=== PATIENT | male | born 1960 | race Hispanic/Latino ===

== ENCOUNTER 2016-08-29 07:24 | Inpatient (IN) | payer MEDICARE, OTHER ==
--- NOTE | 2016-08-29 09:04 | ED PDOC ---
Arrival/HPI - General Historian: Patient - History of Present Illness Time/Duration: > week Symptom Onset: Gradual Symptom Course: Unchanged Quality: Aching, Burning Severity Level: 2 Activities at Onset: Rest Context: Home - General Chief Complaint: Wound Check Time Seen by Provider: 08/29/16 08:46 - History of Present Illness Narrative History of Present Illness (Text): 08/29/16 09:00 This is a 56Y M with PMH of alcoholism and DM who came to ED for L 2nd toe infection. He saw Dr. Sharma earlier this week who advised him to come to ED. Patient reports he has had this wound for weeks. He also reports he has not been checking his sugar or taking his insulin. He also drinks 4L of pepsi per day. He reports 20lb weight loss in the past few weeks. He also complains of a penile wart who he saw a varnish melter for 2 weeks ago who took a biopsy. He denies dysuria, hematuria or increased frequency. He denies drainage from the ulcer or sexual activity. 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 He denies CP, SOB, fever, chills, n/v/d. Patient also reports he quit drinking years ago. 08/29/16 09:04 (Eileen Zaldivar) Past Medical History - Provider Review Nursing Documentation Reviewed: Yes - Infectious Disease Hx of Infectious Diseases: None - Tetanus Immunization Tetanus Immunization: Unknown, Up to Date - Cardiac Hx Pacemaker: No - Pulmonary Hx Chronic Obstructive Pulmonary Disease (COPD): Yes - Neurological Hx Paralysis: No - Hematological/Oncological Hx Blood Transfusions: No - Musculoskeletal/Rheumatological Hx Musculoskeletal Disorders: Yes Hx Arthritis: Yes - Gastrointestinal Hx Gastrointestinal Disorders: Yes Hx Gastroesophageal Reflux: Yes - Psychiatric Hx Emotional Abuse: No Hx Physical Abuse: No Hx Substance Use: Yes (HX COCAINE(CRACK) USE 10 YRS AGO) - Surgical History Hx Orthopedic Surgery: Yes (bilat legs) - Anesthesia Hx Anesthesia: Yes Hx Anesthesia Reactions: Yes (HARD TO WAKE UP "X 1 INCIDENT") Hx Malignant Hyperthermia: No - Suicidal Assessment Feels Threatened In Home Enviroment: No Family/Social History - Physician Review Nursing Documentation Reviewed: Yes Family/Social History: Diabetes Smoking Status: Heavy Smoker > 10 Cigarettes Daily Hx Alcohol Use: Yes (PAST ETOH"LAST DRINK 2 BEERS 09/20) Hx Substance Use: Yes (HX COCAINE(CRACK) USE 10 YRS AGO) Hx Substance Use Treatment: No Allergies/Home Meds Allergies/Adverse Reactions: Allergies No Known Allergies Allergy (Verified 08/29/16 08:49) Home Medications: Home Meds Medication Instructions Recorded Confirmed Insulin Lispro Mix 75/25 [humalog 15 - 20 units SC TID PRN 05/21/14 08/29/16 Mix 75/25 75 U/Ml-25 U/Ml 10 Ml] Esomeprazole Magnesium [Nexium] 40 mg PO DAILY 04/16/16 08/29/16 Aspirin [Ecotrin] 81 mg PO DAILY 08/29/16 08/29/16 Atorvastatin [Lipitor] 40 mg PO DAILY 08/29/16 08/29/16 Gabapentin [Neurontin] 300 mg PO TID 08/29/16 08/29/16 Linaclotide [Linzess] 290 mcg PO DAILY 08/29/16 08/29/16 Midodrine [Proamatine] 2.5 mg PO TID 08/29/16 08/29/16 Vit D3-Vit K/Berberine/Hops 1 each PO DAILY 08/29/16 08/29/16 [Ostera Tablet] tiZANidine [Zanaflex] 4 mg PO HS 08/29/16 08/29/16 Review of Systems - Physician Review All systems were reviewed & negative as marked: Yes - Review of Systems Constitutional: Weight Change Eyes: Normal. absent: Vision Changes ENT: Normal. absent: Hearing Changes Respiratory: Normal. absent: SOB, Cough Cardiovascular: Normal. absent: Chest Pain, Palpitations Gastrointestinal: Normal. absent: Abdominal Pain, Diarrhea, Nausea, Vomiting Genitourinary Male: Normal. absent: Dysuria, Frequency, Hematuria Musculoskeletal: Normal. absent: Arthralgias, Back Pain, Neck Pain Skin: Skin Lesions (wart on penis and wound on L toe ). absent: Normal Neurological: Normal. absent: Headache, Dizziness Endocrine: Normal. absent: Polyuria, Polydipsia Hemo/Lymphatic: Normal Psychiatric: Normal. absent: Anxiety, Depression Physical Exam Vital Signs Reviewed: Yes Temperature: Afebrile Blood Pressure: Normal Pulse: Tachycardic Respiratory Rate: Normal Appearance: Positive for: Well-Appearing, Non-Toxic, Comfortable Pain Distress: None Mental Status: Positive for: Alert and Oriented X 3 - Systems Exam Head: Present: Atraumatic, Normocephalic Pupils: Present: PERRL Extroacular Muscles: Present: EOMI Conjunctiva: Present: Normal Mouth: Present: Moist Mucous Membranes Neck: Present: Normal Range of Motion Respiratory/Chest: Present: Clear to Auscultation, Good Air Exchange. No: Respiratory Distress, Accessory Muscle Use Cardiovascular: Present: Regular Rate and Rhythm, Normal S1, S2. No: Murmurs Abdomen: Present: Normal Bowel Sounds. No: Tenderness, Distention, Peritoneal Signs Genitourinary Male: Present: Lesions (1cm wart on L base of penis). No: Normal External Genitalia Back: Present: Normal Inspection Upper Extremity: Present: Normal Inspection. No: Cyanosis, Edema Lower Extremity: Present: Edema (trace), Deformity (L 2nd toe has ulceration ) Neurological: Present: GCS=15, CN II-XII Intact, Speech Normal Skin: Present: Warm, Dry, Normal Color. No: Rashes Psychiatric: Present: Alert, Oriented x 3, Normal Insight, Normal Concentration Vital Signs Temp Pulse Resp BP Pulse Ox 08/29/16 07:25 97.9 F 94 H 15 100/63 96 Medical Decision Making Re-evaluation Time: 09:30 Reassessment Condition: Unchanged - Lab Interpretations I have reviewed the lab results: Yes Interpretation: Abnormal lab values (hyperglycemia) - EKG Interpretation Interpreted by ED Physician: Yes Type: 12 lead EKG ED Course and Treatment: Patient Seen With Resident: In agreement with resident note. Patient was seen and evaluated with resident, came up with plan and treatment together. (Shayne Lucio DO) 08/29/16 09:06 Impression: This is a 56Y M with PMH DM and alcoholism here for L 2nd toe wound. He has not been checking his sugar or taking his insulin and has been drinking 4L of pepsi per day. He is also noted to have a wart on base of his penis. DDX: osteomyelitis, diabetic wound, DKA Plan: -- CBC, CMP, U/A, Wound culture -- EKG --Reassess Prior Visits: Notes and results from previous visits were reviewed. 08/29/16 10:42 Progress Note: Patient's sugar noted to be 404. 4U of Regular insulin ordered. Spoke with Dr. Fox who will accept the patient into his service. Spoke with patient who is aware of the plan and agreed to be admitted. (Eileen Zaldivar) - Lab Interpretations Lab Results: 08/29/16 09:15 08/29/16 09:15 Lab Results 08/29/16 09:15: Alcohol, Quantitative < 10 08/29/16 09:15: Sodium 133, Potassium 3.8, Chloride 93 L, Carbon Dioxide 33, Anion Gap 11, BUN 6 L, Creatinine 0.7, Est GFR ( Amer) > 60, Est GFR (Non -Af Amer) > 60, Random Glucose 404 H* D, Calcium 8.8, Total Bilirubin 1.0, AST 66 H, ALT 52, Alkaline Phosphatase 128, Total Protein 7.4, Albumin 3.9, Globulin 3.4, Albumin/Globulin Ratio 1.1 08/29/16 09:15: WBC 6.2 D, RBC 4.50, Hgb 13.5 L, Hct 39.0 L, MCV 86.7, MCH 30.0 , MCHC 34.6, RDW 13.3, Plt Count 112 L, MPV 11.0 08/29/16 09:13: POC Glucose (mg/dL) 381 H - EKG Interpretation EKG Interpretation (Text): 08/29/16 09:23 HR 72. Intervals within normal limits. NSR. (Eileen Zaldivar) - Medication Orders Current Medication Orders: Sodium Chloride (Sodium Chloride 0.9%) 1,000 mls @ 125 mls/hr IV .Q8H STA Stop: 08/29/16 17:47 Last Admin: 08/29/16 09:58 Dose: 125 mls/hr Vancomycin HCl (Vancomycin 1gm) 1 gm in 250 mls @ 167 mls/hr IVPB STAT STA PRN Reason: Protocol Stop: 08/29/16 12:23 Last Admin: 08/29/16 10:59 Dose: 167 mls/hr Discontinued Medications Insulin Human Regular (Humulin R) 4 units IVP STAT STA Stop: 08/29/16 09:49 Last Admin: 08/29/16 10:02 Dose: 4 units Disposition/Present on Arrival - Present on Arrival Any Indicators Present on Arrival: No History of DVT/PE: No History of Uncontrolled Diabetes: No Urinary Catheter: No History of Decub. Ulcer: Yes History Surgical Site Infection Following: None - Disposition Have Diagnosis and Disposition been Completed?: Yes Disposition Time: 10:20 Patient Plan: Admission - Disposition Diagnosis: Diabetes, Diabetic ulcer of toe Disposition: HOSPITALIZED Patient Problems: Current Active Problems Problem Status Onset Diabetes Acute Diabetic ulcer of toe Acute Condition: FAIR Print Language: MACEDONIAN Referrals: Sabino Fox MD [Primary Care Provider] - Follow up with primary
[2016-08-29 09:38] LABS: MEAN CELL VOLUME 86.7 fL (80.0-105.0); MEAN CORPUSCULAR HGB CONC 34.6 g/dl (31.0-37.0); RED CELL DISTRIBUTION WIDTH 13.3 % (11.5-14.5); WHITE BLOOD COUNT 6.2 10^3/ul (4.5-11.0)
[2016-08-29 09:44] LABS: ALB/GLOB RATIO 1.1 (1.1-1.8); ALKALINE PHOSPHATASE 128 U/L (38-133); ALT/SGPT 52 U/L (7-56); AST/SGOT 66 U/L (15-59); BLOOD UREA NITROGEN 6 mg/dL (7-21); CALCIUM 8.8 mg/dL (8.4-10.5); CARBON DIOXIDE 33 mmol/L (21-33); CHLORIDE 93 mmol/L (95-110); GFR AFRICAN-AMERICAN > 60; POTASSIUM 3.8 mmol/L (3.6-5.0); SODIUM 133 mmol/L (132-148); TOTAL PROTEIN 7.4 g/dL (5.8-8.3)
[2016-08-29 09:46] LABS: GLUCOSE,RANDOM 404 mg/dL (70-110)
[2016-08-29] MEDS ORDERED: Insulin Regular 1 UNITS/0.01 ML ML IVP STA (09:48)
[2016-08-29] MEDS ORDERED: Sodium Chloride 0.9% 1,000 ML IV STA (09:48)
[2016-08-29] MEDS ORDERED: Vancomycin 1gm in NS 250ml 1 GM/250 ML BAG IVPB STA (10:54)
[2016-08-29 11:23] LABS: URINE BILIRUBIN NEGATIVE (NEGATIVE); URINE BLOOD NEGATIVE (NEGATIVE); URINE GLUCOSE (UA) >=1000 mg/dL (NEGATIVE); URINE KETONE NEGATIVE (NEGATIVE); URINE LEUKOCYTE ESTERASE NEGATIVE Leu/uL (NEGATIVE); URINE PROTEIN NEGATIVE mg/dL (<30 mg/dL); URINE UROBILINOGEN 0.2 E.U./dL (<1 E.U./dL)
[2016-08-29 11:26] LABS: URINE APPEARANCE CLEAR (CLEAR); URINE COLOR YELLOW (YELLOW)
[2016-08-29] MEDS ORDERED: Non Formulary Medication (Linaclotide [Linzess] 290 MCG) PO SCH (12:15)
[2016-08-29 12:23] VITALS: PULSE 77
[2016-08-29 12:47] LABS: CHOLESTEROL 186 mg/dL (130-200)
[2016-08-29] MEDS: oxyCODONE 80 mg ER Tab (oxyCONTIN) PO SCH (13:26)
[2016-08-29] MEDS: Meropenem 1g/NS 100mL IVPB 1 GM/100 ML PIGGYBACK IVPB SCH (13:26)
[2016-08-29 13:35] LABS: INR 1.08 (0.93-1.08)
--- NOTE | 2016-08-29 13:50 | CP.PCM.CON ---
<KimberleeMackArgelia - Last Filed: 08/29/16 13:44> History of Present Illness - History of Present Illness History of Present Illness: PODIATRY CONSULT NOTE: Mr. Reddy is a 56 yo male patient w/ pmhx significant for DM and alcoholism who was seen at bedside today with Dr. Sharma regarding left toe ulceration. Pt says that he was seen by Dr. Sharma earlier in the week and advised to come in to the ED to be seen. Pt seen resting in bed at time of visit, appears to be in NAD. Family member is present at the bedside. Pt says that he has had this wound for several weeks. Says that he has not been taking his blood sugars daily and has not been compliant with his medications. Denies and pain or discomfort to the left foot at this time. Denies f/n/v/c/sob/cp. Review of Systems - Review of Systems Review of Systems: All systems reviewed and found to be negative except pertinent HPI findings above Past Patient History - Infectious Disease Hx of Infectious Diseases: None - Tetanus Immunizations Tetanus Immunization: Unknown, Up to Date - Past Social History Smoking Status: Heavy Smoker > 10 Cigarettes Daily - CARDIAC Hx Pacemaker: No - PULMONARY Hx Chronic Obstructive Pulmonary Disease (COPD): Yes - NEUROLOGICAL Hx Paralysis: No - HEMATOLOGICAL/ONCOLOGICAL Hx Blood Transfusions: No - MUSCULOSKELETAL/RHEUMATOLOGICAL Hx Musculoskeletal Disorders: Yes Hx Arthritis: Yes - GASTROINTESTINAL Hx Gastrointestinal Disorders: Yes Hx Gastroesophageal Reflux: Yes - PSYCHIATRIC Hx Emotional Abuse: No Hx Physical Abuse: No Hx Substance Use: Yes (HX COCAINE(CRACK) USE 10 YRS AGO) - SURGICAL HISTORY Hx Orthopedic Surgery: Yes (bilat legs) - ANESTHESIA Hx Anesthesia: Yes Hx Anesthesia Reactions: Yes (HARD TO WAKE UP "X 1 INCIDENT") Hx Malignant Hyperthermia: No Meds Allergies/Adverse Reactions: Allergies Allergy/AdvReac Type Severity Reaction Status Date / Time No Known Allergies Allergy Verified 08/29/16 08:49 - Medications Medications: Current Medications Aspirin (Ecotrin) 81 mg PO DAILY [facility] Last Admin: 08/29/16 13:26 Dose: 81 mg Atorvastatin Calcium (Lipitor) 40 mg PO DAILY [facility] Last Admin: 08/29/16 13:27 Dose: 40 mg Gabapentin (Neurontin) 300 mg PO TID [facility] PRN Reason: Protocol Last Admin: 08/29/16 13:27 Dose: 300 mg Sodium Chloride (Sodium Chloride 0.9%) 1,000 mls @ 125 mls/hr IV .Q8H STA Stop: 08/29/16 17:47 Last Admin: 08/29/16 09:58 Dose: 125 mls/hr Sodium Chloride (Sodium Chloride 0.9%) 1,000 mls @ 100 mls/hr IV .Q10H [facility] Stop: 09/02/16 16:29 Meropenem 1g/NS 100mL IVPB (Meropenem 1g/Ns 100ml Ivpb) 1 gm in 100 mls @ 100 mls/hr IVPB Q12 [facility] PRN Reason: Protocol Stop: 09/03/16 10:59 Last Admin: 08/29/16 13:26 Dose: 100 mls/hr Insulin Human Lispro (Humalog Med) 0 units SC ACHS [facility] PRN Reason: Protocol Insulin Lispro Protam/Lispro Human (Humalog Mix 75/25) 15 units SC ACB [facility] Insulin Lispro Protam/Lispro Human (Humalog Mix 75/25) 15 units SC DAILY@1745 [facility] Midodrine (Proamatine) 2.5 mg PO TID [facility] Last Admin: 08/29/16 13:26 Dose: 2.5 mg Oxycodone HCl (Oxycodone Immediate Release Tab) 15 mg PO Q4H PRN PRN Reason: Pain, moderate (4-7) Oxycodone HCl (Oxycontin Extended Release Tab) 80 mg PO Q12H [facility] Last Admin: 08/29/16 13:26 Dose: 80 mg Pantoprazole Sodium (Protonix Ec Tab) 40 mg PO 0730,1630 [facility] Polyethylene Glycol (Miralax) 17 gm PO TID [facility] Sennosides (Senokot Tab) 17.2 mg PO HS [facility] Tizanidine HCl (Zanaflex) 4 mg PO HS [facility] Physical Exam - Constitutional Appears: Non-toxic, No Acute Distress - Extremities Exam Additional comments: Left foot focused: There is a bandaid applied to the 2nd digit, there is a foam dressing applied to the heel VASC- DP pulse is faintly palpable, PT pulse is non-palpable, skin temp runs warm to warm with increased callor noted just proximal to the dorsal aspect of 2nd MTPJ, cap refill time is >4 sec to digits 1,3,4,5 and cap refill is delayed to the 2nd digit DERM- ischemic changes are noted to the left 2nd digit from the MTPJ extending circumferentially to the the distal aspect of the digit, there is a small darkened necrotic patch of skin noted to the distal-lateral aspect of the toe, there is blanching erythema noted to the entire digit, there is no fluctuance, there is no malodor, no drainage, no evidence of ascending cellulitis, there is a small pre-ulcerative lesion noted to the plantar-medial aspect of the heel ( no open wound noted, no fluctuance, no erythema, no malodor) NEURO- pedal sensation is grossly diminished ORTHO- no gross deformities noted - Neurological Exam Neurological exam: Alert, CN II-XII Intact, Oriented x3 - Psychiatric Exam Psychiatric exam: Normal Affect, Normal Mood Results - Vital Signs Recent Vital Signs: Last Vital Signs Temp 97.9 F 08/29/16 07:25 Pulse 77 08/29/16 12:22 Resp 08/29/16 12:22 BP 99/70 L 08/29/16 12:22 Pulse Ox 92 L 08/29/16 12:22 - Labs Result Diagrams: 08/29/16 09:15 08/29/16 09:15 Labs: Laboratory Results - last 24 hr 08/29/16 08/29/16 10:24 13:18 PT 11.7 INR 1.08 APTT 30.0 POC Glucose (mg/dL) 344 H Assessment & Plan - Assessment and Plan (Free Text) Assessment: 56 yo diabetic male patient with ischemic changes to left 2nd digit likely secondary to PVD. Plan: -Pt S&E at bedside with attending Dr. Sharma present -Chart, labs, vitals reviewed: afebrile, no leukocytosis, glucose elevated at 404 -Wound cx taken left 2nd toe -Foot x-ray and MRI ordered: r/o OM -Arterial duplex left low ext. ordered -Optifoam dressing applied to left 2nd toe, and also applied to the left heel -Podiatry will continue to follow while he remains in house. <Marlys Sharma - Last Filed: 09/09/16 16:43> Results - Vital Signs Recent Vital Signs: Last Vital Signs Temp 98.6 F 08/30/16 08:40 Pulse 77 08/30/16 08:40 Resp 18 08/30/16 08:40 BP 90/59 L 08/30/16 08:40 Pulse Ox 99 08/30/16 08:40 - Labs Result Diagrams: 08/29/16 09:15 08/29/16 09:15 Attending/Attestation - Attestation I have personally seen and examined this patient.: Yes I have fully participated in the care of the patient.: Yes I have reviewed all pertinent clinical information: Yes
[2016-08-29] MEDS: POLYETHYLENE GLYCOL 3350 17 GM/Dose PACKET PO SCH ×2 (14:25→17:40)
--- NOTE | 2016-08-29 15:04 | CP.PCM.CON ---
<Jose Luis Lutz - Last Filed: 08/29/16 14:53> History of Present Illness - History of Present Illness History of Present Illness: Consult Note for Vascular Surgery Dr. Dunlap 56 M with PMHx of IDDM, etoh abuse, bipolar disorder and depression presenting to [facility] at the suggestion of Dr. Sharma for a non-healing foot ulcer located on the left 2nd metatarsal. Pt reports having this particular ulcer for "weeks". His DM is uncontrolled and has been non-compliant with his medications. We were consulted for vascular compromise 2/2 PAD 2/2 uncontrolled DM. PMDPt was seen and examined at bedside. He denies any foot pain, fevers, chills, sob, chest pains, leg cramping, n/v/d/c. PMHx: As above PSHx: Cholecystectomy, TKR SHx: [id number], etoh quit 20 yrs ago (replaced with 4L soda daily), Denies illicit drug use FamHx: Father: Prostate Ca, Mother: unknown Ca Allergies: NKDA Meds: MAR Reviwed PMD: Dr. Fox Podiaatry: Dr. Sharma Review of Systems - Review of Systems Review of Systems: as per HPI otherwise negative Past Patient History - Infectious Disease Hx of Infectious Diseases: None - Tetanus Immunizations Tetanus Immunization: Unknown, Up to Date - Past Social History Smoking Status: Heavy Smoker > 10 Cigarettes Daily - CARDIAC Hx Pacemaker: No - PULMONARY Hx Chronic Obstructive Pulmonary Disease (COPD): Yes - NEUROLOGICAL Hx Paralysis: No - HEMATOLOGICAL/ONCOLOGICAL Hx Blood Transfusions: No - MUSCULOSKELETAL/RHEUMATOLOGICAL Hx Musculoskeletal Disorders: Yes Hx Arthritis: Yes - GASTROINTESTINAL Hx Gastrointestinal Disorders: Yes Hx Gastroesophageal Reflux: Yes - PSYCHIATRIC Hx Emotional Abuse: No Hx Physical Abuse: No Hx Substance Use: Yes (HX COCAINE(CRACK) USE 10 YRS AGO) - SURGICAL HISTORY Hx Orthopedic Surgery: Yes (bilat legs) - ANESTHESIA Hx Anesthesia: Yes Hx Anesthesia Reactions: Yes (HARD TO WAKE UP "X 1 INCIDENT") Hx Malignant Hyperthermia: No Meds Allergies/Adverse Reactions: Allergies Allergy/AdvReac Type Severity Reaction Status Date / Time No Known Allergies Allergy Verified 08/29/16 08:49 - Medications Medications: Current Medications Aspirin (Ecotrin) 81 mg PO DAILY [facility] Last Admin: 08/29/16 13:26 Dose: 81 mg Atorvastatin Calcium (Lipitor) 40 mg PO DAILY [facility] Last Admin: 08/29/16 13:27 Dose: 40 mg Gabapentin (Neurontin) 300 mg PO TID [facility] PRN Reason: Protocol Last Admin: 08/29/16 13:27 Dose: 300 mg Sodium Chloride (Sodium Chloride 0.9%) 1,000 mls @ 125 mls/hr IV .Q8H [facility] Stop: 08/29/16 17:47 Last Admin: 08/29/16 09:58 Dose: 125 mls/hr Sodium Chloride (Sodium Chloride 0.9%) 1,000 mls @ 100 mls/hr IV .Q10H [facility] Stop: 09/02/16 16:29 Meropenem 1g/NS 100mL IVPB (Meropenem 1g/Ns 100ml Ivpb) 1 gm in 100 mls @ 100 mls/hr IVPB Q12 [facility] PRN Reason: Protocol Stop: 09/03/16 10:59 Last Admin: 08/29/16 13:26 Dose: 100 mls/hr Insulin Human Lispro (Humalog Med) 0 units SC ACHS [facility] PRN Reason: Protocol Insulin Lispro Protam/Lispro Human (Humalog Mix 75/25) 15 units SC ACB [facility] Insulin Lispro Protam/Lispro Human (Humalog Mix 75/25) 15 units SC DAILY@1745 [facility] Midodrine (Proamatine) 2.5 mg PO TID [facility] Last Admin: 08/29/16 13:26 Dose: 2.5 mg Oxycodone HCl (Oxycodone Immediate Release Tab) 15 mg PO Q4H PRN PRN Reason: Pain, moderate (4-7) Oxycodone HCl (Oxycontin Extended Release Tab) 80 mg PO Q12H [facility] Last Admin: 08/29/16 13:26 Dose: 80 mg Pantoprazole Sodium (Protonix Ec Tab) 40 mg PO 0730,1630 [facility] Polyethylene Glycol (Miralax) 17 gm PO TID [facility] Last Admin: 08/29/16 14:25 Dose: Not Given Sennosides (Senokot Tab) 17.2 mg PO HS [facility] Tizanidine HCl (Zanaflex) 4 mg PO HS [facility] Physical Exam - Constitutional Appears: No Acute Distress - Head Exam Head Exam: ATRAUMATIC, NORMAL INSPECTION, NORMOCEPHALIC - Eye Exam Eye Exam: EOMI, Normal appearance, PERRL Pupil Exam: NORMAL ACCOMODATION, PERRL - ENT Exam ENT Exam: Mucous Membranes Moist, Normal Exam - Neck Exam Neck exam: Positive for: Normal Inspection - Respiratory Exam Respiratory Exam: Clear to Auscultation Bilateral, NORMAL BREATHING PATTERN - Cardiovascular Exam Cardiovascular Exam: REGULAR RHYTHM, +S1, +S2 - GI/Abdominal Exam GI & Abdominal Exam: Normal Bowel Sounds, Soft. absent: Tenderness - Extremities Exam Extremities exam: Positive for: pedal pulses present Additional comments: left 2nd metatarsal diabetic ulcer - Neurological Exam Neurological exam: Alert, CN II-XII Intact, Oriented x3, Reflexes Normal - Psychiatric Exam Psychiatric exam: Normal Affect, Normal Mood - Skin Skin Exam: Dry, Intact, Normal Color, Warm Results - Vital Signs Recent Vital Signs: Last Vital Signs Temp 97.9 F 08/29/16 07:25 Pulse 77 08/29/16 12:22 Resp 17 08/29/16 12:22 BP 99/70 L 08/29/16 12:22 Pulse Ox 92 L 08/29/16 12:22 - Labs Result Diagrams: 08/29/16 09:15 08/29/16 09:15 Labs: Laboratory Results - last 24 hr 08/29/16 08/29/16 08/29/16 10:24 13:18 13:18 PT 11.7 INR 1.08 APTT 30.0 POC Glucose (mg/dL) 344 H Lactic Acid 0.9 Assessment & Plan - Assessment and Plan (Free Text) Assessment: 56 M with uncontrolled IDDM presenting to [facility] with non-healing diabetic foot ulcer. - Fu podiatry recs - FU foot xray/ MRI - FU Arterial LE dopplers - FU pct - IV merrem - Medical management as per primary seen reviewed and discussed with attending Jose Luis Lutz PGY1 <Tish Dunlap Y - Last Filed: 08/30/16 14:26> Meds - Medications Medications: Current Medications Aspirin (Ecotrin) 81 mg PO DAILY [facility] Last Admin: 08/30/16 09:15 Dose: 81 mg Atorvastatin Calcium (Lipitor) 40 mg PO DAILY [facility] Last Admin: 08/30/16 09:15 Dose: 40 mg Gabapentin (Neurontin) 300 mg PO TID [facility] PRN Reason: Protocol Last Admin: 08/30/16 09:15 Dose: 300 mg Sodium Chloride (Sodium Chloride 0.9%) 1,000 mls @ 100 mls/hr IV .Q10H [facility] Stop: 09/02/16 16:29 Last Admin: 08/30/16 09:22 Dose: Not Given Meropenem 1g/NS 100mL IVPB (Meropenem 1g/Ns 100ml Ivpb) 1 gm in 100 mls @ 100 mls/hr IVPB Q12 [facility] PRN Reason: Protocol Stop: 09/03/16 10:59 Last Admin: 08/30/16 09:15 Dose: 100 mls/hr Vancomycin HCl (Vancomycin 1gm) 1 gm in 250 mls @ 167 mls/hr IVPB Q12H [facility] PRN Reason: Protocol Last Admin: 08/30/16 09:16 Dose: 167 mls/hr Insulin Detemir (Levemir) 20 unit SC HS [facility] Last Admin: 08/29/16 22:24 Dose: Not Given Insulin Human Lispro (Humalog Low) 0 units SC ACHS [facility] PRN Reason: Protocol Last Admin: 08/30/16 08:53 Dose: Not Given Insulin Lispro Protam/Lispro Human (Humalog Mix 75/25) 30 units SC ACB [facility] Last Admin: 08/30/16 09:21 Dose: 30 units Insulin Lispro Protam/Lispro Human (Humalog Mix 75/25) 20 units SC ACD [facility] Midodrine (Proamatine) 2.5 mg PO TID [facility] Last Admin: 08/30/16 09:15 Dose: 2.5 mg Nicotine (Nicoderm Cq) 1 patch TD DAILY [facility] Last Admin: 08/30/16 09:16 Dose: 1 patch Oxycodone HCl (Oxycodone Immediate Release Tab) 15 mg PO Q4H PRN PRN Reason: Pain, moderate (4-7) Last Admin: 08/30/16 09:20 Dose: 15 mg Oxycodone HCl (Oxycontin Extended Release Tab) 80 mg PO Q12H [facility] Last Admin: 08/30/16 01:23 Dose: 80 mg Pantoprazole Sodium (Protonix Ec Tab) 40 mg PO 0730,1630 [facility] Last Admin: 08/30/16 09:15 Dose: 40 mg Polyethylene Glycol (Miralax) 17 gm PO TID [facility] Last Admin: 08/30/16 09:16 Dose: 17 gm Sennosides (Senokot Tab) 17.2 mg PO [facility] Last Admin: 08/29/16 22:27 Dose: 17.2 mg Tizanidine HCl (Zanaflex) 4 mg PO [facility] Last Admin: 08/29/16 22:28 Dose: 4 mg Results - Vital Signs Recent Vital Signs: Last Vital Signs Temp 98.6 F 08/30/16 08:40 Pulse 77 08/30/16 08:40 Resp 18 08/30/16 08:40 BP 90/59 L 08/30/16 08:40 Pulse Ox 99 08/30/16 08:40 - Labs Result Diagrams: 08/29/16 09:15 08/29/16 09:15 Labs: Laboratory Results - last 24 hr 08/29/16 08/29/16 08/29/16 13:18 13:18 16:14 POC Glucose (mg/dL) 310 H 25-OH Vitamin D Total 59.6 Procalcitonin 0.05 L 08/29/16 08/29/16 08/30/16 20:40 21:52 01:27 POC Glucose (mg/dL) 117 H 78 80 25-OH Vitamin D Total Procalcitonin 08/30/16 08/30/16 07:23 11:56 POC Glucose (mg/dL) 203 H 268 H 25-OH Vitamin D Total Procalcitonin Assessment & Plan - Assessment and Plan (Free Text) Assessment: Patient has palpable pedal pulses, no vascular intervention indicated. Will sign off for now.
--- NOTE | 2016-08-29 15:36 | RAD ---
HISTORY: PRE OP COMPARISON: Chest x-ray performed 04/16/16 TECHNIQUE: Chest PA and lateral FINDINGS: LUNGS: No focal consolidation. Please note that chest x-ray has limited sensitivity for the detection of pulmonary masses. PLEURA: No significant pleural effusion identified. No definite pneumothorax . CARDIOVASCULAR: The cardiomediastinal silhouette appears within normal limits of size. OSSEOUS STRUCTURES: Degenerative changes. VISUALIZED UPPER ABDOMEN: Unremarkable. OTHER FINDINGS: None. IMPRESSION: No focal consolidation, significant pleural effusion, or definite pneumothorax identified.
--- NOTE | 2016-08-29 16:11 | US ---
PROCEDURE: Lower extremity FANNIE exam HISTORY: Peripheral vascular disease with pain and ulceration. PHYSICIAN(S): Jorge Colin MD. FINDINGS: The right resting FANNIE is normal, 1.19. The left resting FANNIE is abnormally elevated, 1.44 The brachial systolic pressures are symmetric. The high thigh pressures and waveforms are relatively normal. The right calf PVR waveform is normal and augments normally. The left calf PVR waveform is decreased in amplitude compared to the right. However, there is no pressure gradient demonstrated. This could represent subtle left SFA occlusive disease. The right ankle and metatarsal waveforms are normal. The left ankle waveform is decreased in amplitude. However, the left metatarsal waveform is normal. IMPRESSION: 1. Possible subtle left SFA occlusive disease.
[2016-08-29] MEDS ORDERED: Insulin Lispro (humaLOG) MEDIUM Coverage SC SCH (16:30)
[2016-08-29] MEDS: oxyCODONE 15 mg Immediate Release Tab PO PRN ×2 (16:47→22:33)
[2016-08-29] MEDS: Pantoprazole 40 mg EC Tab PO SCH (17:42)
[2016-08-29] MEDS ORDERED: Insulin Lispro (humaLOG) MIX 75/25(10 ml) SC SCH (17:45)
--- NOTE | 2016-08-29 17:57 | RAD ---
PROCEDURE: Left Foot Radiographs. HISTORY: r/o OM left 2nd toe COMPARISON: None. FINDINGS: BONES: No acute fractures. Plantar and Achilles Tendon insertion calcaneal spurs. No evidence of acute osteomyelitis. JOINTS: Normal. SOFT TISSUES: Soft tissue swelling 2nd digit. Calcifications within the plantar fascia as well as within the calcaneus. OTHER FINDINGS: None. IMPRESSION: Soft tissue swelling without acute articular or osseous abnormality. No evidence of osteomyelitis left 2nd digit.
[2016-08-29] MEDS ORDERED: Pneumococcal 23-Valent Vaccine IM ONE (18:01)
--- NOTE | 2016-08-29 18:38 | CARD ---
APPROVED REPORT EKG Measurement Heart [id number] <Conclusion> Normal sinus rhythm Normal ECG
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
--- NOTE | 2016-08-29 20:37 | CON ---
DATE: 08/29/2016 TIME: 5:30 p.m. CHIEF COMPLAINT AND HISTORY OF PRESENT ILLNESS: This is a 56-year-old gentleman who was admitted with an ischemic ulceration of the left second toe by Dr. Sharma. He states the ulceration has been present for 4 weeks. He is a known vasculopath with diabetes who is addicted to smoking and alcohol. He has been followed closely by Dr. Sharma in the clinic. He has a palpable left DP pulse. There is an ulceration with an ischemic base on the lateral aspect of the left second toe. In addition, there is a chronic callus and ulceration on the left heel. Interestingly, in 07/2016, the patient had unusual FANNIE findings. An initial FANNIE exam was flat at the left knee and distally consistent with a possible left popliteal embolus. The waveforms improved significantly over the course of a few hours and repeat FANNIE PVR exam demonstrated pulsatile waveforms that were mildly diminished. It was uncertain whether this represented embolus or spasm. Currently, the patient has a palpable left DP pulse. However, the development of the ischemic ulceration of the toe is a worrisome finding. I will speak with Dr. Sharma, but it may be useful to obtain an arteriogram to evaluate the left infrainguinal runoff. The patient's BUN and creatinine are normal. Jorge Colin MD cc: [id number] TT: 08/29/2016 20:36:06 Confirmation # [id number] Dictation # [id number] [email or web address] MEJÍA
--- NOTE | 2016-08-29 20:46 | CON ---
DATE: 08/29/2016 ENDOCRINOLOGY CONSULTATION ROOM: 372 HISTORY OF PRESENT ILLNESS: This is a 56-year-old male with known history of type 1 insulin-dependen t diabetes and hypertension, presenting here with a nonhealing left toe ulceration and is now being r eferred for diabetic evaluation because of marked hyperglycemic accelerations as noted thereof. He a pparently has had a nonhealing left second metatarsal neuropathic ulceration managed on the outpatien t with persistent extubation and despite oral antibiotic therapy as noted. PAST MEDICAL HISTORY: As mentioned above, history of type 1 insulin-dependent diabetes on a premixed insulin regimen as mentioned, history of hypertensive cardiovascular disease and dyslipidemia, histo ry of diabetic retinopathy and polyneuropathy with underlying vasculopathy as noted, history of gener alized anxiety and depression with underlying chronic schizoaffective disorder. FAMILY HISTORY: Positive for hypertension and diabetes. SOCIAL HISTORY: The patient admits to nicotine dependence consuming 3 packs of cigarettes for over 3 0 years at this time. History of chronic alcoholism, but quit a few years ago. No other illicit el g use. REVIEW OF SYSTEMS: Admits to generalized body weakness with easy fatigability and tiredness and subo ptimal energy level. Also admits to episodic dizziness and lightheadedness, worse on the day of admi ssion. No chest pains or palpitations or PNDs. His oral intake is variable with nausea, dyspepsia a nd habitual constipation. PHYSICAL EXAMINATION: GENERAL: An average built male in no apparent distress. VITAL SIGNS: Blood pressure of 140/80, pulse of 70 beats per minute and regular, temperature 99, res pirations 20, height is 5 feet 8, weight is 131 pounds. HEENT: Head normocephalic. Eyes anicteric with pink conjunctivae. Fundoscopy not possible at this time. Ears, nose and throat otherwise normal. NECK: Supple. Thyroid gland is normal size. No carotid bruits or any cervical adenopathy. CARDIOPULMONARY: Some adynamic precordium. S1, S2 is rapid and regular. LUNGS: Clear to auscultation. ABDOMEN: Flat, soft with positive bowel sounds. EXTREMITIES: No peripheral edema. Pulses are +2 bilaterally. There is a nonhealing ulcer in the pl marcell aspect of the left foot in the second metatarsal area as noted. LABORATORY DATA: Chemistry showed a BUN of 6, sodium 133, potassium 3.8, chloride 93, CO2 of 33, glu cose 404 and creatinine 0.7. His glucose levels have ranged from 310 to 344 mg/dL. ASSESSMENT: This is a 56-year-old male with uncontrolled and decompensated type 1 insulin-dependent diabetes, presenting here with a nonhealing neuropathic left foot ulcer with supervening hyperglycemi c accelerations as noted thereof. He also has diabetic microvascular complications of retinopathy an d polyneuropathy with underlying diabetic macrovascular complications of coronary artery disease and peripheral arterial disease and vasculopathy. PLAN OF MANAGEMENT: As discussed with the patient and the staff. We will modify his current insulin regimen and increase his premixed Humalog 75/25 dosing to 30 units a.c. breakfast and 20 units a.c. dinner to start today. We will also add basal insulin with Levemir to be given as 20 units subQ at b edtime daily to start tonight. We will modify the coverage scale to obviate hypoglycemia and detaile d orders have been given. A hemoglobin A1c will be done to confirm his prior glycemic control and virginie snyder thyroid function studies and lipid panel will be ordered. We will reinforce diabetic educatio n and dietary instructions at the time of this admission. We will follow. Kelly Colindres MD cc: [id number] TT: 08/29/2016 20:46:18 Confirmation # [id number] Dictation # [id number] [email or web address]
[2016-08-29] MEDS ORDERED: Insulin Detemir 100 units/ml Vial (Levemir) SC SCH (22:00)
[2016-08-29] MEDS: Insulin Lispro (humaLOG) LOW Coverage SC SCH (22:24)
[2016-08-29] MEDS: Sodium Chloride 0.9% 1,000 ML IV SCH ×2 (22:29)
[2016-08-29] MEDS: Vancomycin 1gm in NS 250ml 1 GM/250 ML BAG IVPB SCH (22:43)
[2016-08-30] MEDS: oxyCODONE 80 mg ER Tab (oxyCONTIN) PO SCH (01:23)
[2016-08-30] MEDS: oxyCODONE 15 mg Immediate Release Tab PO PRN ×3 (03:35→17:51)
[2016-08-30] MEDS ORDERED: Insulin Lispro (humaLOG) MIX 75/25(10 ml) SC SCH ×3 (07:30→16:30)
--- NOTE | 2016-08-30 08:36 | CP.PCM.PN ---
Subjective - Date & Time of Evaluation Date of Evaluation: 08/30/16 Time of Evaluation: 07:40 - Subjective Subjective: General Surgery Progress Note for Dr. Dunlap Pt was seen and examined at bedside. No acute complaints at this time. As per nursing staff, pt has been hypotensive at 90/55 however without symptoms. Pt states that he is feeling better today compared to yesterday. Pt denied to having a bm but is passing flatus. He is also tolerating po intake at this time. Pt admits to LLE pain. He also feels a bit tired on account of not having his usual soda. Pt denied fever, chills, n/v/c. Objective - Vital Signs/Intake and Output Vital Signs (last 24 hours): Temp Pulse Resp BP Pulse Ox 97.9 F 77 17 99/70 L 98 08/29/16 17:45 08/29/16 17:45 08/29/16 17:45 08/29/16 17:45 08/29/16 16:00 Intake and Output: 08/30/16 08/30/16 06:59 18:59 Intake Total 580 2400 Output Total 1200 Balance -620 2400 - Medications Medications: Current Medications Aspirin (Ecotrin) 81 mg PO DAILY [facility] Last Admin: 08/29/16 13:26 Dose: 81 mg Atorvastatin Calcium (Lipitor) 40 mg PO DAILY [facility] Last Admin: 08/29/16 13:27 Dose: 40 mg Gabapentin (Neurontin) 300 mg PO TID [facility] PRN Reason: Protocol Last Admin: 08/29/16 17:40 Dose: 300 mg Sodium Chloride (Sodium Chloride 0.9%) 1,000 mls @ 100 mls/hr IV .Q10H [facility] Stop: 09/02/16 16:29 Last Admin: 08/29/16 22:29 Dose: 100 mls/hr Meropenem 1g/NS 100mL IVPB (Meropenem 1g/Ns 100ml Ivpb) 1 gm in 100 mls @ 100 mls/hr IVPB Q12 [facility] PRN Reason: Protocol Stop: 09/03/16 10:59 Last Admin: 08/29/16 13:26 Dose: 100 mls/hr Vancomycin HCl (Vancomycin 1gm) 1 gm in 250 mls @ 167 mls/hr IVPB Q12H [facility] PRN Reason: Protocol Last Admin: 08/29/16 22:43 Dose: 167 mls/hr Insulin Detemir (Levemir) 20 unit SC HS [facility] Last Admin: 08/29/16 22:24 Dose: Not Given Insulin Human Lispro (Humalog Low) 0 units SC ACHS [facility] PRN Reason: Protocol Last Admin: 08/29/16 22:24 Dose: Not Given Insulin Lispro Protam/Lispro Human (Humalog Mix 75/25) 30 units SC ACB [facility] Insulin Lispro Protam/Lispro Human (Humalog Mix 75/25) 20 units SC ACD [facility] Midodrine (Proamatine) 2.5 mg PO TID [facility] Last Admin: 08/29/16 17:39 Dose: 2.5 mg Nicotine (Nicoderm Cq) 1 patch TD DAILY [facility] Last Admin: 08/29/16 16:47 Dose: 1 patch Oxycodone HCl (Oxycodone Immediate Release Tab) 15 mg PO Q4H PRN PRN Reason: Pain, moderate (4-7) Last Admin: 08/30/16 03:35 Dose: 15 mg Oxycodone HCl (Oxycontin Extended Release Tab) 80 mg PO Q12H [facility] Last Admin: 08/30/16 01:23 Dose: 80 mg Pantoprazole Sodium (Protonix Ec Tab) 40 mg PO 0730,1630 [facility] Last Admin: 08/29/16 17:42 Dose: 40 mg Polyethylene Glycol (Miralax) 17 gm PO TID [facility] Last Admin: 08/29/16 17:40 Dose: 17 gm Sennosides (Senokot Tab) 17.2 mg PO [facility] Last Admin: 08/29/16 22:27 Dose: 17.2 mg Tizanidine HCl (Zanaflex) 4 mg PO [facility] Last Admin: 08/29/16 22:28 Dose: 4 mg - Labs Labs: PT 11.7 Seconds (9.9-11.8) 08/29/16 13:18 INR 1.08 (0.93-1.08) 08/29/16 13:18 APTT 30.0 Seconds (23.7-30.8) 08/29/16 13:18 - Constitutional Appears: No Acute Distress - Head Exam Head Exam: ATRAUMATIC, NORMAL INSPECTION, NORMOCEPHALIC - Eye Exam Eye Exam: EOMI, Normal appearance, PERRL - ENT Exam ENT Exam: Mucous Membranes Moist, Normal Exam - Neck Exam Neck Exam: Full ROM, Normal Inspection. absent: Lymphadenopathy - Respiratory Exam Respiratory Exam: Clear to Ausculation Bilateral, NORMAL BREATHING PATTERN - Cardiovascular Exam Cardiovascular Exam: REGULAR RHYTHM, +S1, +S2. absent: Murmur - GI/Abdominal Exam GI & Abdominal Exam: Soft, Normal Bowel Sounds. absent: Tenderness - Extremities Exam Extremities Exam: Full ROM, Normal Capillary Refill, Normal Inspection. absent : Joint Swelling, Pedal Edema - Neurological Exam Neurological Exam: Alert, Awake, CN II-XII Intact, Oriented x3 - Psychiatric Exam Psychiatric exam: Normal Affect, Normal Mood - Skin Skin Exam: Dry, Intact, Normal Color, Warm Assessment and Plan - Assessment and Plan (Free Text) Assessment: 56 M with non-healing DM ulcer to left 2nd digit secondary to PVD/DM neuropathy Left SFA occlusive disease Left ft Xray did not demonstrate any signs of OM FU MRI to ro OM Palpable dp pulses, no surgical intervention at this time. Vascular surgery will sign off at this time.
[2016-08-30 08:41] VITALS: BP 90/59; RESP 18; TEMP 98.6; O2SAT 99
[2016-08-30] MEDS: Insulin Lispro (humaLOG) LOW Coverage SC SCH ×2 (08:53→17:54)
[2016-08-30] MEDS: Meropenem 1g/NS 100mL IVPB 1 GM/100 ML PIGGYBACK IVPB SCH (09:15)
[2016-08-30] MEDS: Pantoprazole 40 mg EC Tab PO SCH ×2 (09:15→17:52)
[2016-08-30] MEDS: POLYETHYLENE GLYCOL 3350 17 GM/Dose PACKET PO SCH ×3 (09:16→17:56)
[2016-08-30] MEDS: Vancomycin 1gm in NS 250ml 1 GM/250 ML BAG IVPB SCH (09:16)
[2016-08-30] MEDS: Sodium Chloride 0.9% 1,000 ML IV SCH (09:22)
--- NOTE | 2016-08-30 09:23 | CP.PCM.PN ---
<Argelia Mohan - Last Filed: 08/30/16 09:19> Subjective - Date & Time of Evaluation Date of Evaluation: 08/30/16 Time of Evaluation: 08:30 - Subjective Subjective: 56 yo male diabetic patient seen at bedside this AM with Dr. Sharma present regarding left toe ulceration. Pt seen resting in bed at time of visit. Pt says that he feels tired and has a headache, he attributes this to his not having his regular pepsi's. Denies f/n/v/c/sob/cp. Does complain of some pain to the left leg today however. Denies any other pedal complaints at this time. Objective - Vital Signs/Intake and Output Vital Signs (last 24 hours): Temp Pulse Resp BP Pulse Ox 98.6 F 77 18 90/59 L 99 08/30/16 08:40 08/30/16 08:40 08/30/16 08:40 08/30/16 08:40 08/30/16 08:40 Intake and Output: 08/30/16 08/30/16 06:59 18:59 Intake Total 580 2400 Output Total 1200 Balance -620 2400 - Medications Medications: Current Medications Aspirin (Ecotrin) 81 mg PO DAILY [facility] Last Admin: 08/29/16 13:26 Dose: 81 mg Atorvastatin Calcium (Lipitor) 40 mg PO DAILY [facility] Last Admin: 08/29/16 13:27 Dose: 40 mg Gabapentin (Neurontin) 300 mg PO TID [facility] PRN Reason: Protocol Last Admin: 08/29/16 17:40 Dose: 300 mg Sodium Chloride (Sodium Chloride 0.9%) 1,000 mls @ 100 mls/hr IV .Q10H [facility] Stop: 09/02/16 16:29 Last Admin: 08/29/16 22:29 Dose: 100 mls/hr Meropenem 1g/NS 100mL IVPB (Meropenem 1g/Ns 100ml Ivpb) 1 gm in 100 mls @ 100 mls/hr IVPB Q12 [facility] PRN Reason: Protocol Stop: 09/03/16 10:59 Last Admin: 08/29/16 13:26 Dose: 100 mls/hr Vancomycin HCl (Vancomycin 1gm) 1 gm in 250 mls @ 167 mls/hr IVPB Q12H [facility] PRN Reason: Protocol Last Admin: 08/29/16 22:43 Dose: 167 mls/hr Insulin Detemir (Levemir) 20 unit SC HS [facility] Last Admin: 08/29/16 22:24 Dose: Not Given Insulin Human Lispro (Humalog Low) 0 units SC ACHS [facility] PRN Reason: Protocol Last Admin: 08/30/16 08:53 Dose: Not Given Insulin Lispro Protam/Lispro Human (Humalog Mix 75/25) 30 units SC ACB [facility] Insulin Lispro Protam/Lispro Human (Humalog Mix 75/25) 20 units SC ACD [facility] Midodrine (Proamatine) 2.5 mg PO TID [facility] Last Admin: 08/29/16 17:39 Dose: 2.5 mg Nicotine (Nicoderm Cq) 1 patch TD DAILY [facility] Last Admin: 08/29/16 16:47 Dose: 1 patch Oxycodone HCl (Oxycodone Immediate Release Tab) 15 mg PO Q4H PRN PRN Reason: Pain, moderate (4-7) Last Admin: 08/30/16 03:35 Dose: 15 mg Oxycodone HCl (Oxycontin Extended Release Tab) 80 mg PO Q12H [facility] Last Admin: 08/30/16 01:23 Dose: 80 mg Pantoprazole Sodium (Protonix Ec Tab) 40 mg PO 0730,1630 [facility] Last Admin: 08/29/16 17:42 Dose: 40 mg Polyethylene Glycol (Miralax) 17 gm PO TID [facility] Last Admin: 08/29/16 17:40 Dose: 17 gm Sennosides (Senokot Tab) 17.2 mg PO [facility] Last Admin: 08/29/16 22:27 Dose: 17.2 mg Tizanidine HCl (Zanaflex) 4 mg PO [facility] Last Admin: 08/29/16 22:28 Dose: 4 mg - Labs Labs: PT 11.7 Seconds (9.9-11.8) 08/29/16 13:18 INR 1.08 (0.93-1.08) 08/29/16 13:18 APTT 30.0 Seconds (23.7-30.8) 08/29/16 13:18 - Constitutional Appears: Non-toxic, No Acute Distress - Extremities Exam Additional comments: Left foot focused: VASC- DP pulse is faintly palpable, PT pulse is non-palpable, skin temp runs warm to warm with increased callor noted just proximal to the dorsal aspect of 2nd MTPJ, cap refill time is >4 sec to digits 1,3,4,5 and cap refill is delayed to the 2nd digit DERM- ischemic changes are noted to the left 2nd digit from the MTPJ extending circumferentially to the the distal aspect of the digit, there is a small darkened necrotic patch of skin noted to the distal-lateral aspect of the toe, there is blanching erythema noted to the entire digit, there is no fluctuance, there is no malodor, no drainage, no evidence of ascending cellulitis, there is a small pre-ulcerative lesion noted to the plantar-medial aspect of the heel ( no open wound noted, no fluctuance, no erythema, no malodor) NEURO- pedal sensation is grossly diminished ORTHO- no gross deformities noted - Neurological Exam Neurological Exam: Alert, Awake, Oriented x3 - Psychiatric Exam Psychiatric exam: Normal Affect, Normal Mood Assessment and Plan - Assessment and Plan (Free Text) Assessment: 56 yo diabetic male patient with ischemic changes to left 2nd digit likely secondary to PVD and diabetic neuropathy Plan: -Pt S&E at bedside with attending Dr. Sharma present -Chart, labs, vitals reviewed: afebrile, no leukocytosis, sugars improving -f/u wound cx left 2nd toe -f/u foot MRI (r/o OM) -Foot x-ray and MRI ordered: r/o OM -Low ext arter duplex (left): abnormally elevated FANNIE left (1.44), possible subtle left SFA occlusive disease -Optifoam dressing reapplied to the left 2nd toe, optifoam dressing to left heel left intact -Podiatry will continue to follow while he is in house. <Marlys Sharma - Last Filed: 09/09/16 16:45> Objective - Vital Signs/Intake and Output Vital Signs (last 24 hours): Temp Pulse Resp BP Pulse Ox 98.6 F 77 18 90/59 L 99 08/30/16 08:40 08/30/16 08:40 08/30/16 08:40 08/30/16 08:40 08/30/16 08:40 - Labs Labs: PT 11.7 Seconds (9.9-11.8) 08/29/16 13:18 INR 1.08 (0.93-1.08) 08/29/16 13:18 APTT 30.0 Seconds (23.7-30.8) 08/29/16 13:18 Attending/Attestation - Attestation I have personally seen and examined this patient.: Yes I have fully participated in the care of the patient.: Yes I have reviewed all pertinent clinical information, including history, physical exam and plan: Yes
--- NOTE | 2016-08-30 10:40 | CON ---
DATE: 08/30/2016 HISTORY OF PRESENT ILLNESS: The patient is a 56-year-old male who presents with ulcers in the lower extremities with a high probability of peripheral vascular disease. The patient's vascular risk factors include diabetes mellitus, hypercholesterolemia and active smokin g. The patient also in an active alcohol drinker. The patient denies chest pain, denies shortness of breath. No previous myocardial infarction in the past. SOCIAL HISTORY: The patient is an active smoker and has frequent alcohol intake. REVIEW OF SYSTEMS: A 14-point review of systems was reviewed. Negative shortness of breath. Negati ve chest pain. Symptoms are dominated by his lower extremity issues. His activity is minimal. PHYSICAL EXAMINATION: VITAL SIGNS: Blood pressure is 90/60. The heart rate is in the 70s. NECK: Negative JVD. LUNGS: Decreased breath sounds without rales. HEART: Reveals S1, S2 with a II/ systolic ejection murmur. EXTREMITIES: Decreased pulses in the lower extremities. EKG shows normal sinus rhythm with no acute changes. LABORATORIES: The BUN and creatinine are unremarkable. The glucose is 203. The potassium is 3.8. The hemoglobin is 13.5. Previous echocardiogram performed in 08/2016 reveals good LV function, mild LVH with no pulmonary hyp ertension. IMPRESSION: 1. Severe peripheral vascular disease. 2. Foot ulcers. 3. Chronic obstructive pulmonary disease. 4. High probability for coronary artery disease. 5. Diabetes mellitus. 6. Hypercholesterolemia. Despite the patient's increased risk for having coronary disease, his good left ventricular function and no evidence for active coronary ischemia makes his surgical risk for possible peripheral vascular surgery acceptable. There is no evidence for acute coronary ischemia at this time. Jorge Penaloza MD cc: [id number] TT: 08/30/2016 10:39:53 Confirmation # [id number] Dictation # [id number] mn
--- NOTE | 2016-08-30 11:49 | PN ---
DATE: 08/30/2016 The patient is seen in room 372, bed 1. The patient is lying in the bed. The patient is alert, awake, responsive, lethargic. The patient states that he wants to eat regular food. He does not like the hospital food and he threatens to sign out if he is not ordered regular food and Pepsi and soda. Overnight nurse's notes were reviewed. The patient's blood pressure was found to be low. PHYSICAL EXAMINATION: VITAL SIGNS: T-max 98.6, heart rate 77-82, blood pressure 90/59, 99/71, respirations 18-20. O2 sat 99%. HEAD: Normocephalic, atraumatic. HEENT: Shows pinkish, pale conjunctivae. Dry oral mucosa. Positive facial muscle weakness, positive cachexia noted. Pinkish pale conjunctivae. Dry oral mucosa, poor dentition. CHEST: Positive kyphosis of the chest noted. Occasional rhonchi noted upper lung stephen. The patient's lab work from today is pending. CARDIOVASCULAR: Shows S1, S2, regular rhythm. ABDOMEN: Soft, positive bowel sounds. GENITALIA: Male. RECTAL: Deferred. EXTREMITIES: Shows positive heel ulceration. Positive left toe ulceration. Noted positive Band-Aid noted. Positive lower extremity muscle wasting noted. VASCULAR: Palpable pulses. NEUROLOGIC: The patient is alert, awake, oriented x 3, is able to move upper and lower extremities without assistance. Gait examination could not be tested. MUSCULOSKELETAL: Shows decreased muscle mass and cachexia. DIAGNOSTICS: None from today, pending Hemoglobin A1c 10.9. Lactic acid is 0.9. Procalcitonin level is 0.05. Vitamin D 59.6. Cholesterol 186, LDL 141, HDL 26. Wound and blood cultures are pending. IMPRESSION AND PLAN: 1. Left foot second toe ischemic changes with diabetic foot ulceration of the left second toe and left heel. 2. Hypotension. 3. Severe noncompliance and poor compliance. 4. Nicotine dependence and addiction. 5. Severe dietary and medication noncompliance. 6. Hypotension. 7. Anemia and thrombocytopenia. 8. Uncontrolled insulin-requiring diabetes mellitus with hyperglycemia and hemoglobin A1c of 10.9. 9. Hypercholesterolemia with elevated LDL, decreased HDL. 10. Glycosuria. 11. Severe noncompliance. 12. Cachexia. 13. Peripheral vascular disease of the lower extremity with left superficial femoral artery possible occlusive disease. 14. Degenerative joint disease of the spine. 15. Chronic narcotic dependent pain syndrome. 16. Diabetic foot ulceration. 17. Insulin-requiring diabetes mellitus. 18. Thrombocytopenia. 19. Hypotension. 20. Poor compliance. 21. Severe dietary and medication noncompliance. 22. History of hypertriglyceridemia. 23. History of recurrent chronic pancreatitis. 24. History of cholecystectomy. 25. History of alcoholism in the past. 26. History of active nicotine dependence. 1. Left foot, left toe and left heel nonhealing diabetic foot ulceration and diabetic foot disease. 2. Hypotension. 3. Probable hypotension secondary to autonomic dysfunction. 4. Anemia. 5. Thrombocytopenia. 6. Uncontrolled type 1 diabetes mellitus with hyperglycemia. 7. Dyslipidemia with elevated LDL and decreased HDL. 8. Glycosuria. 9. History of peripheral vascular disease. 10. Hypertension. 11. Deconditioning. 12. History of narcotic-dependent pain syndrome. 13. History of hypovitaminosis D. 14. History of narcotic-dependent constipation, history of hypertension, diabetic neuropathy, dyslipidemia. PLAN: At this time, the patient is seen by podiatry, endocrinology and cardiology. The patient has been requested vascular surgery, interventional radiology consultation, infectious disease consultation. The patient is presently on IV antibiotics, IV fluid, insulin coverage. The patient is on GI and DVT prophylaxis. At present, patient was counseled about cessation of smoking, strict compliance with diet, medication, and continuation of the stay in the hospital was advised to continue the treatment, but patient threatens to sign out against medical advice if he is not given regular food and soda. The patient was advised about the risk and consequences of his underlying diabetes with multisystem organ failure, etc. Dictated and electronically signed, not read. Sabino Fox MD cc: [id number] TT: 08/30/2016 11:48:02 Confirmation # [id number] Dictation # [id number] diony MEJÍA
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
--- NOTE | 2016-08-30 19:11 | MRI ---
MRI left forefoot History: Ulceration. Evaluate for osteomyelitis. Comparison: X-ray dated 08/29/2016 Technique: Multi-echo multiplanar sequences were performed through the left forefoot without the use of intravenous contrast. Findings: Prominent signal abnormality seen within the 2nd distal phalanx with patchy decreased T1 signal and increased STIR signal concerning for acute osteomyelitis. Minimal patchy reactive edema seen within the head of the 2nd middle phalanx, nonspecific. Focal areas of avascular necrosis/bone infarctions seen at the head and base of the 1st metacarpal bone, medial cuneiform bone, cuboid bone, and anterior calcaneus. Additional questionable focal area of signal abnormality seen within the lateral cuneiform bone. Prominent focal areas of lobulated low signal seen within the plantar soft tissues at the mid and hindfoot corresponding to the sheet like ossifications/calcifications seen on x-ray. Focal bony protruberance at the base of the 4th metatarsal bone, nonspecific. Visualized extensor and flexor tendons are grossly preserved. Impression: 1. Prominent signal abnormality seen within the 2nd distal phalanx with patchy decreased T1 signal and increased STIR signal concerning for acute osteomyelitis. Minimal patchy reactive edema seen within the head of the 2nd middle phalanx, nonspecific. 2. Focal areas of avascular necrosis/bone infarctions seen at the head and base of the 1st metacarpal bone, medial cuneiform bone, cuboid bone, and anterior calcaneus. Additional questionable focal area of signal abnormality seen within the lateral cuneiform bone. 3. Prominent focal areas of lobulated low signal seen within the plantar soft tissues at the mid and hindfoot corresponding to the sheet like ossifications/calcifications seen on x-ray. 4. Focal bony protruberance at the base of the 4th metatarsal bone, nonspecific.
[2016-08-30] MEDS ORDERED: Insulin Detemir 100 units/ml Vial (Levemir) SC SCH (22:00)
--- NOTE | 2016-08-31 08:09 | PN ---
DATE: 08/30/2016 LOCATION: Room 372. SUBJECTIVE: This is a 56-year-old male with type 2 insulin now being . His glycemic levels are fluctuating, but much improved . His oral intake remains quite variable as per the nursing staff. LABORATORY DATA: His latest chemistry showed a BUN of 6, sodium 133, potassium 3.8, chloride 93, CO2 33, glucose , and creatinine 0.7. His hemoglobin A1c is 10.9%, indicative of suboptimal metabo lic control with . His latest glucose levels today have ranged from 203 to 268 mg/dL. 7 8 up to 117 at bedtime last night. ASSESSMENT AND PLAN: So, at this time, to allow for dose equilibration as his oral intake is quite v ariable, will continue the same dosing of his 3 mixed and basal insulin regimen as ordered. Will con tinue his Humalog 75/25 given as 30 units a.c. breakfast and 20 units a.c. dinner as ordered. Will l ower the Levemir to 14 units subcutaneous at bedtime daily as ordered. Will obtain serial chemistrie s and supplement accordingly as needed. Will also continue the same low-dose correction scale using Humalog insulin as ordered. Will titrate incrementally as indicated to optimize metabolic control. Will follow. Kelly Colindres MD cc: [id number] TT: 08/30/2016 18:06:43 Confirmation # [id number] Dictation # [id number]
--- NOTE | 2016-09-05 15:03 | DS ---
The patient signed out against medical advice 08/30. The patient actually left the floor without signing the AMA form. The patient refused to wait for the house physician to complete the form. The patient was explained by me in the morning that patient should not sign out against medical advice, but later in the evening patient refused to stay in the hospital, declining to sign the AMA form, declining to wait for the house physician to complete the AMA form and patient left without signing the AMA form. FINAL IMPRESSION, PLAN, AND FINAL DIAGNOSES: 1. Left foot infected diabetic ulcer. 2. Staphylococcus lugdunensis. 3. Left foot, left toe diabetic foot ulceration and osteomyelitis involving the left foot second distal phalanx with acute osteomyelitis on MRI with reactive edema. 4. Poor compliance. 5. Left foot second distal phalanx prominent signal abnormality with patchy decreased T1 signal and increased STIR signal concerning for acute osteomyelitis with patchy reactive edema within the head of the second middle phalanx nonspecific. 6. Focal areas of avascular necrosis, bony infarct seen at the head of the base of the first metacarpal bone, medial cuneiform bone, cuboid bone and anterior callus. 7. Left foot plantar soft tissue calcification and ossification. 8. Nonspecific fourth metatarsal bone, focal bony protuberance. 9. Hypotension. 10. Severe dietary and medication noncompliance. 11. Normocytic anemia. 12. Insulin requiring diabetes mellitus with severe noncompliance with hemoglobin A1c of 10.9. 13. Hypercholesterolemia with elevated LDL and decreased HDL. 14. Glycosuria. 15. Staphylococcus lugdunensis, left foot and left toe diabetic foot ulceration and osteomyelitis. 16. History of peripheral vascular disease. 17. Left foot plantar fascia calcification. 18. Possible left superficial femoral artery occlusive disease. 19. Anemia and thrombocytopenia. 1. Left foot second toe ischemic changes with diabetic foot ulceration of the left second toe and left heel. 2. Hypotension. 3. Severe noncompliance and poor compliance. 4. Nicotine dependence and addiction. 5. Severe dietary and medication noncompliance. 6. Hypotension. 7. Anemia and thrombocytopenia. 8. Uncontrolled insulin-requiring diabetes mellitus with hyperglycemia and hemoglobin A1c of 10.9. 9. Hypercholesterolemia with elevated LDL, decreased HDL. 10. Glycosuria. 11. Severe noncompliance. 12. Cachexia. 13. Peripheral vascular disease of the lower extremity with left superficial femoral artery possible occlusive disease. 14. Degenerative joint disease of the spine. 15. Chronic narcotic dependent pain syndrome. 16. Diabetic foot ulceration. 17. Insulin-requiring diabetes mellitus. 18. Thrombocytopenia. 19. Hypotension. 20. Poor compliance. 21. Severe dietary and medication noncompliance. 22. History of hypertriglyceridemia. 23. History of recurrent chronic pancreatitis. 24. History of cholecystectomy. 25. History of alcoholism in the past. 26. History of active nicotine dependence. 1. Left foot, left toe and left heel nonhealing diabetic foot ulceration and diabetic foot disease. 2. Hypotension. 3. Probable hypotension secondary to autonomic dysfunction. 4. Anemia. 5. Thrombocytopenia. 6. Uncontrolled type 1 diabetes mellitus with hyperglycemia. 7. Dyslipidemia with elevated LDL and decreased HDL. 8. Glycosuria. 9. History of peripheral vascular disease. 10. Hypertension. 11. Deconditioning. 12. History of narcotic-dependent pain syndrome. 13. History of hypovitaminosis D. 14. History of narcotic-dependent constipation, history of hypertension, diabetic neuropathy, dyslipidemia. The patient left the floor around 8 p.m., refusing to sign AMA form. The patient was explained of all the risks and consequences in the morning rounds by me. The patient was advised against signing out AMA, but patient left the floor without signing the AMA form on 08/30/2016. Dictated and electronically signed, not read. Sabino Fox MD cc: [id number] TT: 08/30/2016 22:02:38 diony MEJÍA
== END 2016-08-30 20:22 | disposition left against medical advice (07) | DRG 638 ==
LOC: ED 07:24 → ERH 10:20 → 3RSO 12:30
PROVIDERS: ADMIT Internal Medicine; ATTEND Internal Medicine
DX: E10.621 Type 1 diabetes mellitus with foot ulcer (principal); F11.20 Opioid dependence, uncomplicated; M86.9 Osteomyelitis, unspecified; E10.10 Type 1 diabetes mellitus with ketoacidosis without coma; R64 Cachexia; E10.42 Type 1 diabetes mellitus with diabetic polyneuropathy; D69.6 Thrombocytopenia, unspecified; I11.9 Hypertensive heart disease without heart failure; E10.51 Type 1 diabetes mellitus with diabetic peripheral angiopathy without gangrene; I95.9 Hypotension, unspecified; L97.429 Non-pressure chronic ulcer of left heel and midfoot with unspecified severity; K86.1 Other chronic pancreatitis; L97.529 Non-pressure chronic ulcer of other part of left foot with unspecified severity; F25.9 Schizoaffective disorder, unspecified; E10.69 Type 1 diabetes mellitus with other specified complication; E10.319 Type 1 diabetes mellitus with unspecified diabetic retinopathy without macular edema; I25.10 Atherosclerotic heart disease of native coronary artery without angina pectoris; D64.9 Anemia, unspecified; E29.1 Testicular hypofunction; E78.00 Pure hypercholesterolemia, unspecified; E78.1 Pure hyperglyceridemia; E78.5 Hyperlipidemia, unspecified; F17.200 Nicotine dependence, unspecified, uncomplicated; F31.9 Bipolar disorder, unspecified; F41.1 Generalized anxiety disorder; F60.3 Borderline personality disorder; G89.4 Chronic pain syndrome; J44.9 Chronic obstructive pulmonary disease, unspecified; K21.9 Gastro-esophageal reflux disease without esophagitis; K76.0 Fatty (change of) liver, not elsewhere classified; L08.9 Local infection of the skin and subcutaneous tissue, unspecified; M47.9 Spondylosis, unspecified; Z79.4 Long term (current) use of insulin; Z79.82 Long term (current) use of aspirin; Z79.899 Other long term (current) drug therapy; Z80.42 Family history of malignant neoplasm of prostate; Z82.49 Family history of ischemic heart disease and other diseases of the circulatory system; Z83.3 Family history of diabetes mellitus; Z90.49 Acquired absence of other specified parts of digestive tract; Z91.11 Patient's noncompliance with dietary regimen; Z91.14 Patient's other noncompliance with medication regimen; Z91.19 Patient's noncompliance with other medical treatment and regimen; Z91.5 Personal history of self-harm; Z96.652 Presence of left artificial knee joint; R81 Glycosuria; F10.21 Alcohol dependence, in remission; B95.7 Other staphylococcus as the cause of diseases classified elsewhere

== ENCOUNTER 2016-10-26 23:06 | Inpatient (IN) | payer MEDICARE, OTHER ==
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
[2016-10-26 23:52] LABS: VENOUS BLOOD GAS BASE EXCESS 4.2 mmol/L (0.0-2.0); VENOUS BLOOD GAS PO2 85 mm/Hg (30-55)
[2016-10-27] LABS: BASO # 0.02 K/mm3 (0.0-2.0); BASO % 0.2 % (0.0-3.0); GRAN # 8.14 (1.4-6.5); GRAN % 80.5 % (50.0-68.0); HEMOGLOBIN 15.8 gm/dL (14.0-18.0); LYMPH # 1.5 (1.2-3.4); LYMPH % 15.2 % (22.0-35.0); MEAN CELL VOLUME 82.2 fL (80.0-105.0); MEAN CORPUSCULAR HEMOGLOBIN 29.3 pg (25.0-35.0); MEAN CORPUSCULAR HGB CONC 35.6 g/dl (31.0-37.0); MEAN PLATELET VOLUME 12.1 fl (7.0-11.0); MONO # 0.4 (0.1-0.6); MONO % 4.1 % (1.0-6.0); PLATELET COUNT 148 10^3/uL (120.0-450.0); RED CELL DISTRIBUTION WIDTH 12.7 % (11.5-14.5); WHITE BLOOD COUNT 10.1 10^3/ul (4.5-11.0)
[2016-10-27 00:02] LABS: ALB/GLOB RATIO 1.1 (1.1-1.8); ALBUMIN 4.4 g/dL (3.0-4.8); ALT/SGPT 44 U/L (7-56); AST/SGOT 37 U/L (15-59); BLOOD UREA NITROGEN 6 mg/dL (7-21); CALCIUM 10.1 mg/dL (8.4-10.5); GFR AFRICAN-AMERICAN > 60; GFR NON-AFRICAN AMERICAN > 60; LIPASE 18 U/L (23-300)
[2016-10-27 00:08] LABS: INR 1.22 (0.93-1.08); PARTIAL THROMBOPLASTIN TIME 30.2 Seconds (23.7-30.8); PROTHROMBIN TIME 13.2 Seconds (9.9-11.8)
[2016-10-27] MEDS ORDERED: Iohexol 350 MG/100 ML VIAL ONE (01:08)
--- NOTE | 2016-10-27 02:21 | CT ---
EXAM: CT Head Without Intravenous Contrast CLINICAL HISTORY: The patient age is 56 years old and is male; Injury or trauma; Fall; Initial encounter; Blunt trauma (contusions or hematomas); Consciousness not specified Facility exam id and description: Ct heads head w/o contrast TECHNIQUE: Axial computed tomography images of the head/brain without intravenous contrast. This CT exam was performed using one or more of the following dose reduction techniques: automated exposure control, adjustment of the mA and/or kV according to patient size, and/or use of iterative reconstruction technique. EXAM DATE/TIME: 10/26/2016 11:37 PM COMPARISON: CT - HEAD W/O CONTRAST 04/16/2016 6:47:38 AM FINDINGS: Artifacts: Motion artifact limits this study. Brain: Aside from the areas of artifact, the white-mims differentiation is preserved demonstrating no acute territorial type infarct. Due to motion artifact, intracranial hemorrhage cannot be excluded. Midline shift: There is no midline shift. Ventricles: No ventriculomegaly. Bones/joints: The calvarium demonstrates no evidence for a depressed fracture. Soft tissues: There is mild soft tissue swelling of the frontal scalp superiorly. Sinuses: No acute sinusitis. Mastoid air cells: No mastoid effusion. IMPRESSION: 1. There is mild soft tissue swelling of the frontal scalp superiorly. 2. Due to motion artifact, intracranial hemorrhage cannot be excluded. Repeat CT imaging is recommended.
--- NOTE | 2016-10-27 02:31 | CT ---
EXAM: CT Abdomen and Pelvis With Intravenous Contrast CLINICAL HISTORY: The patient age is 56 years old and is male; Pain; Abdominal pain; Acute; Additional info: Abdominal tenderness Facility exam id and description: Ct abdpelciv abd pelvis iv contrast only TECHNIQUE: Axial computed tomography images of the abdomen and pelvis with intravenous contrast. This CT exam was performed using one or more of the following dose reduction techniques: automated exposure control, adjustment of the mA and/or kV according to patient size, and/or use of iterative reconstruction technique. Coronal and sagittal reformatted images were created and reviewed. CONTRAST: 100 mL of OMNI 350 administered intravenously. EXAM DATE/TIME: 10/26/2016 11:37 PM COMPARISON: No relevant prior studies available. FINDINGS: Lower thorax: Patchy nonspecific groundglass density is identified within the lung bases. Atelectatic changes/parenchymal scarring is visualized within the right middle lobe. ABDOMEN: Liver: There is hypodense fatty infiltration of the liver. Gallbladder and bile ducts: Surgical clips are identified within the gallbladder fossa, compatible with cholecystectomy. Pancreas: Atrophic changes are noted of the pancreas. Calcifications are visualized within the pancreas, consistent with chronic pancreatitis. Spleen: There is mild splenomegaly. The spleen measures 13.3 cm in length. Adrenals: No mass. Kidneys and ureters: No hydronephrosis. No solid mass. Stomach and bowel: Dilated jejunal small bowel loops are identified, likely representing ileus or obstruction. There is dilatation of the proximal duodenum, which tapers at the level of the superior mesenteric vessels. This is suggestive of SMA syndrome or obstruction. Appendix: No findings to suggest acute appendicitis. PELVIS: Bladder: Post cystectomy clips are visualized. Reproductive: Unremarkable as visualized. ABDOMEN and PELVIS: Intraperitoneal space: No free air. Bones/joints: Hyperdensity is seen within the proximal left humeral shaft, which is likely postoperative. Hypertrophic degenerative changes are noted within the spine. Vasculature: There is atherosclerotic calcification of the abdominal aorta and iliac arteries. No abdominal aortic aneurysm. Lymph nodes: No significant retroperitoneal or intrapelvic lymphadenopathy. IMPRESSION: 1. Dilated jejunal small bowel loops are identified, likely representing ileus or obstruction. There is dilatation of the proximal duodenum, which tapers at the level of the superior mesenteric vessels. This is suggestive of SMA syndrome or obstruction. 2. There is hypodense fatty infiltration of the liver. 3. There is mild splenomegaly. 4. Atrophic changes are noted of the pancreas. Calcifications are visualized within the pancreas, consistent with chronic pancreatitis. 5. Incidental/non-acute findings are described above.
[2016-10-27] MEDS ORDERED: Midazolam 2 MG/2 ML VIAL IVP STA (02:48)
--- NOTE | 2016-10-27 03:50 | CT ---
EXAM: CT Head Without Intravenous Contrast CLINICAL HISTORY: The patient age is 56 years old and is male; Injury or trauma; Fall; Initial encounter; Blunt trauma (contusions or hematomas); Consciousness not specified Facility exam id and description: Ct heads head w/o contrast TECHNIQUE: Axial computed tomography images of the head/brain without intravenous contrast. This CT exam was performed using one or more of the following dose reduction techniques: automated exposure control, adjustment of the mA and/or kV according to patient size, and/or use of iterative reconstruction technique. EXAM DATE/TIME: 10/27/2016 2:38 AM COMPARISON: CT - HEAD W/O CONTRAST 10/27/2016 1:40:43 AM FINDINGS: Brain: The presence of contrast limits evaluation for intracranial hemorrhage, without definitive subdural or subarachnoid hemorrhage. The white-mims differentiation is preserved demonstrating no acute territorial type infarct. Midline shift: There is no midline shift. Ventricles: No ventriculomegaly. Bones/joints: The calvarium demonstrates no evidence for a depressed fracture. Soft tissues: No acute abnormality. Sinuses: Unremarkable as visualized. No acute sinusitis. Mastoid air cells: No mastoid effusion. IMPRESSION: 1. The presence of contrast limits evaluation for intracranial hemorrhage, without definitive subdural or subarachnoid hemorrhage.
[2016-10-27] MEDS ORDERED: Sodium Chloride 0.9% 1,000 ML IV STA (04:02)
[2016-10-27 04:34] LABS: URINE BILIRUBIN NEGATIVE (NEGATIVE); URINE BLOOD MODERATE (NEGATIVE); URINE GLUCOSE (UA) >=1000 mg/dL (NEGATIVE); URINE LEUKOCYTE ESTERASE NEGATIVE Leu/uL (NEGATIVE); URINE NITRATE NEGATIVE (NEGATIVE); URINE PROTEIN 100 mg/dL (<30 mg/dL); URINE UROBILINOGEN 0.2 E.U./dL (<1 E.U./dL)
[2016-10-27 04:35] LABS: URINE APPEARANCE CLEAR (CLEAR); URINE COLOR YELLOW (YELLOW)
[2016-10-27 04:43] LABS: URINE BACTERIA FEW (NEG); URINE EPITHELIAL CELLS 0 - 2 /hpf (0-5); URINE WBC 0 - 2 /hpf (0-6)
[2016-10-27] MEDS ORDERED: Lidocaine 2% Jelly (Uro-Jet) TOP ONE (04:51)
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
[2016-10-27] MEDS: Lactated Ringer's 1,000 ML IV SCH ×2 (06:37→18:56)
[2016-10-27 07:57] VITALS: RESP 20; O2SAT 96
[2016-10-27 08:16] LABS: BASO # 0.01 K/mm3 (0.0-2.0); BASO % 0.1 % (0.0-3.0); GRAN # 11.44 (1.4-6.5); GRAN % 79.1 % (50.0-68.0); HEMOGLOBIN 15.8 gm/dL (14.0-18.0); LYMPH # 2.4 (1.2-3.4); LYMPH % 16.2 % (22.0-35.0); MEAN CELL VOLUME 81.8 fL (80.0-105.0); MEAN CORPUSCULAR HEMOGLOBIN 29.4 pg (25.0-35.0); MEAN PLATELET VOLUME 11.4 fl (7.0-11.0); MONO # 0.7 (0.1-0.6); MONO % 4.6 % (1.0-6.0); PLATELET COUNT 142 10^3/uL (120.0-450.0); RBC 5.37 10^6/uL (3.5-6.1); RED CELL DISTRIBUTION WIDTH 12.6 % (11.5-14.5); WHITE BLOOD COUNT 14.5 10^3/ul (4.5-11.0)
[2016-10-27 08:37] LABS: ALBUMIN 4.2 g/dL (3.0-4.8); ALT/SGPT 28 U/L (7-56); AMYLASE 40 U/L (35-125); AST/SGOT 33 U/L (15-59); BLOOD UREA NITROGEN 10 mg/dL (7-21); CALCIUM 9.9 mg/dL (8.4-10.5); GFR AFRICAN-AMERICAN > 60; GFR NON-AFRICAN AMERICAN > 60; HDL CHOLESTEROL 22 mg/dL (29-60); LIPASE 16 U/L (23-300); MAGNESIUM 1.8 mg/dL (1.7-2.2)
[2016-10-27 08:49] LABS: LDL CHOLESTEROL 224 mg/dL (0-129)
[2016-10-27] MEDS ORDERED: Sodium Chloride 0.9% 1,000 ML IV SCH (09:30)
[2016-10-27] MEDS ORDERED: Cefepime 0.5 GM in Sodium Chloride 0.9% 100 ML IVPB SCH (09:45)
[2016-10-27] MEDS ORDERED: metroNIDAZOLE IV 500 mg/100 ml 500 MG/100 ML BAG IVPB SCH (09:45)
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
[2016-10-27] MEDS: Levalbuterol 0.63 MG/3 ML Inhal Soln UD IH SCH ×2 (11:07→20:35)
[2016-10-27 11:08] LABS: FREE T4 0.92 ng/dL (0.78-2.19); T4 9.1 ug/dL (5.5-11.0)
--- NOTE | 2016-10-27 11:31 | CP.PCM.PCO ---
Physician Communication Note - Physician Communication Note Physician Communication Note: NO SBO or SMA Syndrome-[place] diet/Insulin/opiate coverage
--- NOTE | 2016-10-27 12:10 | RAD ---
HISTORY: disoriented COMPARISON: 08/29/2016 FINDINGS: LUNGS: No active pulmonary disease. PLEURA: No significant pleural effusion identified, no pneumothorax apparent. CARDIOVASCULAR: Normal. OSSEOUS STRUCTURES: No significant abnormalities. VISUALIZED UPPER ABDOMEN: Normal. OTHER FINDINGS: None. IMPRESSION: No active disease.
--- NOTE | 2016-10-27 12:12 | RAD ---
PROCEDURE: Left Foot Radiographs. HISTORY: foot pain and swelling COMPARISON: 08/29/2016 FINDINGS: BONES: No acute fracture. No periosteal reaction. No osseous erosion. There is a core bone within bone "Appearance in the posterior calcaneus, uncertain significance. 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 This is unchanged from prior examination. JOINTS: Normal. SOFT TISSUES: Sheets -like ossification within the plantar soft tissues, likely dystrophic. She-like calcification is also noted in soft tissues about the tibial diaphysis. OTHER FINDINGS: None. IMPRESSION: No radiographic evidence of osteomyelitis. Stable incidental findings as above.
--- NOTE | 2016-10-27 12:14 | RAD ---
HISTORY: NGT placement COMPARISON: 10/26/2016 FINDINGS: LUNGS: No active pulmonary disease. PLEURA: No significant pleural effusion identified, no pneumothorax apparent. CARDIOVASCULAR: Normal heart size. Nasogastric tube extends to left upper quadrant of abdomen. OSSEOUS STRUCTURES: No significant abnormalities. VISUALIZED UPPER ABDOMEN: Normal. OTHER FINDINGS: None. IMPRESSION: New nasogastric tube. No pulmonary infiltrate.
[2016-10-27] MEDS: Insulin Reg-MEDIUM-Coverage SC SCH ×2 (12:23→16:58)
[2016-10-27] MEDS ORDERED: Vancomycin 1gm in NS 250ml 1 GM/250 ML BAG IVPB SCH (13:30)
--- NOTE | 2016-10-27 14:15 | CON ---
SUBJECTIVE: A 56-year-old patient, seen at bedside for consultation, evaluation and management of painful left foot. The patient states that a bucket of paint fell on his left foot, and it has been black and blue ever since, this happened a few days ago. He also presents with disperse pain on both feet. The patient was admitted for abdominal pain yesterday. MEDICAL HISTORY: The patient's medical history is significant for long-standing uncontrolled insulin dependant diabetes with severe peripheral neuropathy; hyperlipidemia; COPD; CAD. He has had numerous bouts of osteomyelitis and bilateral heel wounds over the course of the last few years. SURGICAL HISTORY: Femoropopliteal bypass performed on the left leg. SOCIAL HISTORY: The patient has a history of heavy tobacco use, over 10 cigarettes daily x 40 years, alcohol abuse and illicit drug use, specifically crack, cocaine. ALLERGIES: The patient has no known drug allergies. FAMILY HISTORY: Unremarkable. MEDICATIONS: Home medications are noted in MAR. VITAL SIGNS: Reveal temperature of 98.5, pulse rate of 67, blood pressure of 169/93, and respiratory rate of 20. LABORATORY FINDINGS: Reveal an white count of 14.5, hemoglobin of 15.8, hematocrit of 43.9, and platelet count of 142. OBJECTIVE: Nonpalpable pedal pulses noted bilaterally. Absent heel hair growth noted bilaterally. Lower extremities *------* bilaterally. The patient is unable to detect 5.07 g monofilament wire testing bilaterally and reports numbness, burning and tingling in both feet. There is a pre-ulcerative lesion on his left plantar heel. The area is not open at this time and skin is intact. Both feet present with disperse pain secondary to dropping a paint can. His left fifth metatarsophalangeal region presents with ecchymosis, edema and erythema. There are no open lesions noted, and the patient is unable to feel pain at that area due to his neuropathy. ASSESSMENT: Rule out fracture of the left foot specifically at the fifth metatarsophalangeal joint. PLAN: We will order x-rays to ascertain whether there is a fracture or a bone contusion in his left foot. In the meantime, we will apply dry sterile dressing and keep the patient off his feet as much as possible. We will await x-ray results. Robert Lucero DPM
[2016-10-27] MEDS: Vancomycin 25 MG/ML PO SCH ×2 (14:48→18:13)
[2016-10-27] MEDS: HYDROmorphone 0.5 mg/0.5 ml ISec IVP PRN ×2 (15:13→18:57)
[2016-10-27 15:17] LABS: TROPONIN I < 0.01 ng/mL
[2016-10-27 15:20] LABS: CK-MB 2.4 ng/mL (0.0-3.6)
[2016-10-27 16:25] VITALS: BMI 21.1
[2016-10-27] MEDS ORDERED: Pneumococcal 23-Valent Vaccine IM ONE (16:25)
--- NOTE | 2016-10-27 16:41 | CON ---
DATE: 10/27/2016 LOCATION: The patient seen in room #576, bed #1. CHIEF COMPLAINT: Diarrhea and foot infection of several days duration. HISTORY OF PRESENT ILLNESS: This is a 56-year-old male with a long time history of alcohol abuse, substance abuse, chronic pain syndrome, peripheral vascular disease, GERD, history of left foot infection in the past, history of being bipolar, diabetes mellitus, who has had a cholecystectomy and back surgery in the past, who has no known allergies; admitted now with a diagnosis of dilated bowel loops and hyperglycemia after a fall. He states that he had paint container that dropped on his foot, spilled paint and injured his left foot. At this point, he has no nausea or vomiting and he states that his abdominal issues have resolved. He is passing bowel and no fevers. No chills. No chest pain, shortness of breath or cough. PAST MEDICAL HISTORY: Significant for diabetes mellitus, bipolar, substance abuse, alcohol abuse, chronic pain syndrome, peripheral vascular disease, GERD, and history of left foot infection. PAST SURGICAL HISTORY: Significant for cholecystectomy and back surgery. ALLERGIES: The patient has no known allergies. MEDICATIONS: Include the patient to be on insulin, Neurontin, Nexium, Lipitor, aspirin, Zanaflex. PHYSICAL EXAMINATION: GENERAL: The patient is in bed. VITAL SIGNS: Temperature of 99, blood pressure is 150/70, respiratory rate of 18, and hear rate of 86. HEENT: Unremarkable. NECK: Supple. LUNGS: Decreased breath sounds. HEART: Normal S1 and S2. ABDOMEN: Soft and nontender. EXTREMITIES: Examination of the left foot reveals ecchymotic laceration and no discharge, there was mild erythema. LABORATORY DATA: Examination reveals a white count of 14,500, yesterday on admission it was 10,000; hemoglobin of 15 and coagulation is noted. Chemistries reveal BUN of 6 and creatinine of 0.5. Alk phos is elevated at *------*. The urinalysis is unremarkable. X-ray of the foot is negative for fractures or osteomyelitis. X-ray of the chest is negative. ASSESSMENT AND PLAN: This is a 56-year-old male with history of alcohol abuse, substance abuse, bipolar, diabetes, chronic pain syndrome, peripheral vascular disease. Leukocytosis, diarrhea and the patient has a left foot ecchymosis and hematoma, must ruled out underlying fracture and osteomyelitis. We will treat the patient with IV vancomycin, IV Zosyn and p.o. vancomycin. We will order an MRI of the foot. Stool for C. diff, pancultures and further recommendations upon the availability of initial result and we will follow with you. Hilton Enriquez MD
[2016-10-27 17:11] VITALS: BP 150/78; PULSE 69; TEMP 98.1
[2016-10-27 17:40] LABS: FOLATE 19.8 ng/mL
[2016-10-27] MEDS ORDERED: Piperacillin/Tazobact 3.375 gm 100 ML IVPB SCH (18:00)
--- NOTE | 2016-10-27 20:48 | CARD ---
APPROVED REPORT EKG Measurement Heart [id number] <Conclusion> Sinus rhythm with marked sinus arrhythmia Possible Left atrial enlargement Borderline ECG
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
== END 2016-10-27 22:00 | disposition left against medical advice (07) | DRG 638 ==
LOC: ED 23:06 → ERH 10-27 04:29 → 5RSO 10-27 06:23 → OBSVTOIN 10-27 08:27
PROVIDERS: ADMIT Internal Medicine; ATTEND Internal Medicine
PROC: 0D9670Z Drainage of Stomach with Drainage Device, Via Natural or Artificial Opening (ICD-10-PCS; principal; 2016-10-27)
DX: E11.65 Type 2 diabetes mellitus with hyperglycemia (principal); K56.7 Ileus, unspecified; R64 Cachexia; F19.20 Other psychoactive substance dependence, uncomplicated; E11.51 Type 2 diabetes mellitus with diabetic peripheral angiopathy without gangrene; E11.42 Type 2 diabetes mellitus with diabetic polyneuropathy; E11.621 Type 2 diabetes mellitus with foot ulcer; L97.529 Non-pressure chronic ulcer of other part of left foot with unspecified severity; E11.319 Type 2 diabetes mellitus with unspecified diabetic retinopathy without macular edema; E78.5 Hyperlipidemia, unspecified; E78.1 Pure hyperglyceridemia; E55.9 Vitamin D deficiency, unspecified; J44.9 Chronic obstructive pulmonary disease, unspecified; I25.10 Atherosclerotic heart disease of native coronary artery without angina pectoris; K21.9 Gastro-esophageal reflux disease without esophagitis; G89.4 Chronic pain syndrome; K59.09 Other constipation; K76.0 Fatty (change of) liver, not elsewhere classified; Z68.21 Body mass index [BMI] 21.0-21.9, adult; Z79.4 Long term (current) use of insulin; Z91.11 Patient's noncompliance with dietary regimen; Z91.19 Patient's noncompliance with other medical treatment and regimen; Z79.82 Long term (current) use of aspirin; Z91.14 Patient's other noncompliance with medication regimen; Z87.891 Personal history of nicotine dependence

== ENCOUNTER 2018-01-25 10:41 | Emergency (ER) | payer MEDICARE ==
[2018-01-25 10:42] VITALS: BMI 21.1
[2018-01-25 10:51] VITALS: RESP 18; TEMP 97.7
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
[2018-01-25 12:14] LABS: VENOUS BLOOD GAS BASE EXCESS 5.6 mmol/L (0.0-2.0); VENOUS BLOOD GAS PO2 30 mm/Hg (30-55); VENOUS BLOOD PH 7.35 (7.32-7.43)
[2018-01-25] MEDS ORDERED: Sodium Chloride 0.9% 500 ML IV STA (12:14)
[2018-01-25 12:16] LABS: BASO # 0.02 K/mm3 (0.0-2.0); BASO % 0.3 % (0.0-3.0); EOS % 0.3 % (1.5-5.0); GRAN # 5.08 (1.4-6.5); GRAN % 73.1 % (50.0-68.0); HEMOGLOBIN 13.9 g/dL (14.0-18.0); LYMPH # 1.4 (1.2-3.4); LYMPH % 19.4 % (22.0-35.0); MEAN CORPUSCULAR HEMOGLOBIN 27.8 pg (25.0-35.0); MEAN CORPUSCULAR HGB CONC 32.7 g/dl (31.0-37.0); MEAN PLATELET VOLUME 10.5 fl (7.0-11.0); MONO # 0.5 (0.1-0.6); MONO % 6.9 % (1.0-6.0); RED CELL DISTRIBUTION WIDTH 14.5 % (11.5-14.5)
[2018-01-25 12:28] LABS: ALB/GLOB RATIO 1.1 (1.1-1.8); ALT/SGPT 46 U/L (7-56); AST/SGOT 27 U/L (17-59); BLOOD UREA NITROGEN 8 mg/dL (7-21); CALCIUM 10.3 mg/dL (8.4-10.5); GFR NON-AFRICAN AMERICAN > 60
[2018-01-25] MEDS ORDERED: Sodium Chloride 0.9% 500 ML IV ONE (13:12)
[2018-01-25] MEDS ORDERED: Insulin Regular 1 UNITS/0.01 ML ML SC STA (13:13)
--- NOTE | 2018-01-25 14:01 | CT ---
Date of service: 01/25/2018 PROCEDURE: CT Abdomen and Pelvis without intravenous contrast HISTORY: diffuse abdominal/flank pain COMPARISON: 10/27/2016. CT abdomen and pelvis TECHNIQUE: Unenhanced. Neither IV nor oral contrast administered Radiation dose: Total exam DLP = 250.17 mGy-cm. This CT exam was performed using one or more of the following dose reduction techniques: Automated exposure control, adjustment of the mA and/or kV according to patient size, and/or use of iterative reconstruction technique. FINDINGS: LOWER THORAX: Unremarkable. LIVER: Hepatic steatosis. No focal masses. No intrahepatic bile duct dilatation or perihepatic ascites. GALLBLADDER AND BILE DUCTS: Status post cholecystectomy. No abnormality is seen in the gallbladder fossa. PANCREAS: Atrophic pancreas. Pancreatic calcifications consistent with chronic pancreatitis. No evidence of superimposed, acute pancreatitis. SPLEEN: Mild splenomegaly unchanged compared to the prior study. ADRENALS: Unremarkable. No mass. KIDNEYS AND URETERS: Unremarkable. No hydronephrosis. No solid mass. VASCULATURE: Unremarkable. No aortic aneurysm. Calcified nonaneurysmal abdominal aorta. BOWEL: Constipation without fecal impaction or obstruction. Gastric distension without outflow abnormality APPENDIX: No abnormalities to suggest acute appendicitis. No right lower quadrant inflammatory processes identified. PERITONEUM: Unremarkable. No free fluid. No free air. LYMPH NODES: Unremarkable. No enlarged lymph nodes. BLADDER: Unremarkable. REPRODUCTIVE: Unremarkable. BONES: No visible fractures or other significant abnormalities OTHER FINDINGS: None. IMPRESSION: No acute findings related to/accounting for the clinical presentation. Additional benign and/or incidental findings described above. No significant interval change compared to the prior examination(s).
--- NOTE | 2018-01-25 14:10 | RAD ---
Date of service: 01/25/2018 HISTORY: r/o focal infection COMPARISON: No prior. FINDINGS: LUNGS: No active pulmonary disease. PLEURA: No significant pleural effusion identified, no pneumothorax apparent. CARDIOVASCULAR: No atherosclerotic calcification present Normal. OSSEOUS STRUCTURES: No significant abnormalities. VISUALIZED UPPER ABDOMEN: Normal. OTHER FINDINGS: None. IMPRESSION: No active disease.
[2018-01-25 14:55] LABS: URINE BILIRUBIN NEGATIVE (NEGATIVE); URINE BLOOD NEGATIVE (NEGATIVE); URINE GLUCOSE (UA) >=1000 mg/dL (NEGATIVE); URINE LEUKOCYTE ESTERASE NEGATIVE Leu/uL (NEGATIVE); URINE PROTEIN NEGATIVE mg/dL (<30 mg/dL); URINE UROBILINOGEN 0.2 E.U./dL (<1 E.U./dL)
[2018-01-25 14:59] VITALS: BP 108/61; PULSE 71; O2SAT 95
[2018-01-25 15:00] LABS: URINE APPEARANCE CLEAR (CLEAR); URINE COLOR LIGHT YELLOW (YELLOW)
== END 2018-01-25 15:34 | disposition home or self-care (01) ==
LOC: ED 10:41
DX: E11.65 Type 2 diabetes mellitus with hyperglycemia (principal); R10.9 Unspecified abdominal pain; F17.210 Nicotine dependence, cigarettes, uncomplicated
CPT/HCPCS: 71045; 74176; 80053; 81003; 82803; 82948; 83735; 84100; 85025; 85378; 96372; 96374; 99283; J2405; J7040

== ENCOUNTER 2018-07-29 08:59 | Outpatient (CLI) | payer MEDICARE | END 2018-07-29 09:00 | disposition home or self-care (01) | LOC: RAD 08:59 ==

== ENCOUNTER 2018-08-04 04:20 | Emergency (ER) | payer MEDICARE ==
[2018-08-04 04:36] VITALS: BMI 21.6
[2018-08-04 05:07] VITALS: TEMP 98.3
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
[2018-08-04 05:36] LABS: BASO # 0.01 {null, K/mm3} (0.0-2.0); BASO % 0.1 % (0.0-3.0); HEMOGLOBIN 15.5 g/dL (14.0-18.0); LYMPH # 2.4 (1.2-3.4); LYMPH % 19.4 % (22.0-35.0); MEAN CORPUSCULAR HEMOGLOBIN 28.5 pg (25.0-35.0); MEAN CORPUSCULAR HGB CONC 35.3 g/dl (31.0-37.0); MEAN PLATELET VOLUME 10.6 fl (7.0-11.0); MONO # 0.8 (0.1-0.6); MONO % 6.1 % (1.0-6.0); RBC 5.44 {null, 10^6/uL} (3.5-6.1); RED CELL DISTRIBUTION WIDTH 14.7 % (11.5-14.5); WHITE BLOOD COUNT 12.3 {null, 10^3/uL} (4.5-11.0)
[2018-08-04 05:50] VITALS: PULSE 58; O2SAT 98
[2018-08-04 05:54] LABS: MEAN CELL VOLUME 80.7 fl (80.0-105.0)
[2018-08-04 06:02] LABS: ACETAMINOPHEN < 10.0 ug/ml (10.0-20.0); SALICYLATE < 1 mg/dL (2.0-20.0)
[2018-08-04 06:21] LABS: ALBUMIN 4.4 g/dL (3.0-4.8); ALT/SGPT 48 U/L (7-56); AST/SGOT 55 U/L (17-59); BLOOD UREA NITROGEN 12 mg/dL (7-21); CALCIUM 9.4 mg/dL (8.4-10.5); GFR NON-AFRICAN AMERICAN > 60
[2018-08-04 06:44] VITALS: BP 153/78; RESP 14
--- NOTE | 2018-08-04 09:18 | RAD ---
Date of service: 08/04/2018 HISTORY: fall COMPARISON: 01/25/2018 TECHNIQUE: Chest PA and lateral views. Two views FINDINGS: LUNGS: No active pulmonary disease. PLEURA: No significant pleural effusion identified. No pneumothorax apparent. CARDIOVASCULAR: No aortic atherosclerotic calcification present. Normal cardiac size. No pulmonary vascular congestion. OSSEOUS STRUCTURES: No significant abnormalities. VISUALIZED UPPER ABDOMEN: Normal. OTHER FINDINGS: None. IMPRESSION: No active disease.
--- NOTE | 2018-08-04 09:19 | RAD ---
Date of service: 08/04/2018 PROCEDURE: Right Knee Radiographs. HISTORY: fall COMPARISON: None. TECHNIQUE: 2 views obtained. FINDINGS: BONES: Normal. No fracture. JOINTS: Normal. No osteoarthritis. JOINT EFFUSION: None. OTHER FINDINGS: None. IMPRESSION: Normal radiographs of the right knee.
--- NOTE | 2018-08-04 09:27 | CT ---
Date of service: 08/04/2018 PROCEDURE: CT HEAD WITHOUT CONTRAST. HISTORY: fall COMPARISON: 10/27/2016 TECHNIQUE: Axial computed tomography images were obtained through the head/brain without intravenous contrast. Radiation dose: Total exam DLP = 2160.34 mGy-cm. This CT exam was performed using one or more of the following dose reduction techniques: Automated exposure control, adjustment of the mA and/or kV according to patient size, and/or use of iterative reconstruction technique. FINDINGS: HEMORRHAGE: No intracranial hemorrhage. BRAIN: No mass effect or edema. No atrophy or chronic microvascular ischemic changes. VENTRICLES: Unremarkable. No hydrocephalus. CALVARIUM: Unremarkable. PARANASAL SINUSES: Unremarkable as visualized. No significant inflammatory changes. MASTOID AIR CELLS: Unremarkable as visualized. No inflammatory changes. OTHER FINDINGS: The report concurs with the preliminary [facility] report IMPRESSION: No acute intracranial findings
--- NOTE | 2018-08-04 09:30 | CT ---
Date of service: 08/04/2018 PROCEDURE: CT Cervical Spine without contrast HISTORY: fall COMPARISON: None available. TECHNIQUE: Axial computed tomography images were obtained of the cervical spine without the use of intravenous contrast. Coronal and sagittal reformatted images were created and reviewed. Radiation dose: Total exam DLP = 387.69 mGy-cm. This CT exam was performed using one or more of the following dose reduction techniques: Automated exposure control, adjustment of the mA and/or kV according to patient size, and/or use of iterative reconstruction technique. FINDINGS: VERTEBRAE: No fracture. Normal alignment. No destructive bony lesion. DISCS/SPINAL CANAL/NEURAL FORAMINA: No significant central canal or neural foraminal stenosis. Disc degeneration at C5-6 PARASPINAL SOFT TISSUES: Unremarkable. OTHER FINDINGS: The report concurs with the preliminary [facility] report IMPRESSION: No acute findings
--- NOTE | 2018-08-04 10:11 | CARD ---
APPROVED REPORT Date of service: 08/04/2018 EKG Measurement Heart [id number] <Conclusion> Sinus bradycardia Possible Left atrial enlargement Borderline ECG
== END 2018-08-04 06:50 | disposition home or self-care (01) ==
LOC: ED 04:20
DX: M25.561 Pain in right knee (principal); T50.995A Adverse effect of other drugs, medicaments and biological substances, initial encounter; W01.0XXA Fall on same level from slipping, tripping and stumbling without subsequent striking against object, initial encounter; Y92.009 Unspecified place in unspecified non-institutional (private) residence as the place of occurrence of the external cause; E11.40 Type 2 diabetes mellitus with diabetic neuropathy, unspecified; E78.5 Hyperlipidemia, unspecified; G47.00 Insomnia, unspecified; Z79.82 Long term (current) use of aspirin; Z96.652 Presence of left artificial knee joint
CPT/HCPCS: 70450; 71046; 72125; 73560; 80053; 83735; 85025; 93005; 99284; G0480